=== PATIENT | female | born 1955 | race Caucasian/White ===

== ENCOUNTER → 2016-10-17 | Outpatient (CLI) | payer OTHER ==
[~2016-10-17] MED LIST: ASPEC325 PO; CINN1CAP2 PO; COEN1CAP17 PO; HYDR25TA5 PO; MULT-506 PO; OMEG10007 PO; OXYSR10 PO
--- NOTE | 2016-10-18 16:00 | MAMMOGRAPHY REPORT ---
BILATERAL DIGITAL SCREENING MAMMOGRAM TOMOSYNTHESIS WITH CAD: 10/17/2016 CLINICAL HISTORY: Routine screening. Patient has no complaints. TECHNIQUE: Breast tomosynthesis in addition to standard 2D mammography was performed. Additional 2- D left XCCL and right cleavage views were obtained. Current study was also evaluated with a Computer Aided Detection (CAD) system. COMPARISON: Comparison is made to exams dated: 09/28/2015 mammogram, 09/11/2014 mammogram, 10/15/2012 ma mmogram, 10/12/2011 mammogram, 10/10/2010 mammogram, and 10/01/2009 mammogram - [facility] ter. BREAST COMPOSITION: The tissue of both breasts is almost entirely fatty. FINDINGS: No suspicious mass, architectural distortion or cluster of microcalcifications is seen. IMPRESSION: ACR BI-RADS CATEGORY 1: NEGATIVE There is no mammographic evidence of malignancy. A 1 year screening mammogram is recommended. The pa tient will receive written notification of the results. Approximately 10% of breast cancers are not detected with mammography. A negative mammographic report should not delay biopsy if a clinically suggestive mass is present. Linda Solis M.D. ay/:10/17/2016 18:21:47 Stacker Attendant: Dodie TORRES(Roni)(Carlos)(BD), [facility] letter sent: Normal 1/2 BI-RADS Code: ACR BI-RADS Category 1: Negative
== END | disposition home or self-care (01) ==
LOC: C.MAMM 09:59
PROVIDERS: ATTEND Family Medicine
DX: Z12.31 Encounter for screening mammogram for malignant neoplasm of breast (principal)

== ENCOUNTER → 2017-02-23 | Outpatient (CLI) | payer OTHER ==
--- NOTE | 2017-02-23 14:56 | DIAGNOSTIC IMAGING REPORT ---
L TOE(S) MIN 2 VIEWS CLINICAL HISTORY: 61 years-old Female presenting with LEFT 1ST DIGIT TOE PAIN. TECHNIQUE: Frontal, oblique, and lateral views of the left first toe were obtained. COMPARISON: None. FINDINGS: No acute fracture or malalignment. No advanced degenerative change in the left first toe. No radiographic soft tissue abnormality. Accessory navicular noted. Degenerative change in the midfoot. IMPRESSION: No acute osseous injury of the left first toe. Electronically signed by: Roman Givens M.D. 02/23/2017 2:55 PM Dictated Date/Time: 02/23/2017 2:53 PM
== END | disposition home or self-care (01) ==
LOC: C.RAD1850 14:42
PROVIDERS: ATTEND Family Medicine
DX: M19.072 Primary osteoarthritis, left ankle and foot (principal)

== ENCOUNTER → 2017-10-18 | Outpatient (CLI) | payer OTHER ==
--- NOTE | 2017-10-18 15:09 | MAMMOGRAPHY REPORT ---
BILATERAL DIGITAL SCREENING MAMMOGRAM TOMOSYNTHESIS WITH CAD: 10/18/2017 CLINICAL HISTORY: Routine screening. TECHNIQUE: Breast tomosynthesis in addition to standard 2D mammography was performed. Current study w as also evaluated with a Computer Aided Detection (CAD) system. COMPARISON: Comparison is made to exams dated: 09/28/2015 mammogram, 09/11/2014 mammogram, 10/15/2012 ma mmogram, 10/12/2011 mammogram, 10/10/2010 mammogram, and 10/17/2016 [facility]. BREAST COMPOSITION: The tissue of both breasts is almost entirely fatty. FINDINGS: No suspicious masses, calcifications, or areas of architectural distortion are noted in either breast . There has been no significant interval change compared to prior exams. IMPRESSION: ACR BI-RADS CATEGORY 1: NEGATIVE There is no mammographic evidence of malignancy. A 1 year screening mammogram is recommended.( 019) The patient will receive written notification of the results. Some breast cancers are not detected with mammography. A negative mammographic report should not zoey y biopsy if a clinically suggestive mass is present. Nayeli Mina M.D. ah/:10/18/2017 12:42:10 Receiving Clerk: RT Melinda(Roni)(M), [facility] letter sent: Normal 1/2 BI-RADS Code: ACR BI-RADS Category 1: Negative
== END | disposition home or self-care (01) ==
LOC: C.MAMM 09:36
PROVIDERS: ATTEND Family Medicine
DX: Z12.31 Encounter for screening mammogram for malignant neoplasm of breast (principal)

== ENCOUNTER 2020-02-02 05:09 | Inpatient (IN) ==
--- NOTE | 2020-01-13 12:16 | PAT Medication Instructions ---
Medication Instructions Date of Service January 13, 2020 Home Medications allopurinol 150 mg PO Q OTHER DAY cinnamon bark [Cinnamon] 1,000 mg PO QAM coenzyme Q10 [CoQ-10] 100 mg PO QAM losartan 1 tab PO QAM omega 2-xsk-rgi-fish oil [Fish Oil] 1 cap PO PM pyridoxine (vitamin B6) [Vitamin B-6] 100 mg PO QAM aspirin 81 mg PO QPM Continue as directed allopurinol 150 mg PO Q OTHER DAY STOP taking 2 weeks before surgery cinnamon bark [Cinnamon] 1,000 mg PO QAM coenzyme Q10 [CoQ-10] 100 mg PO QAM omega 4-vwa-hik-fish oil [Fish Oil] 1 cap PO PM DO NOT take the morning of surgery losartan 1 tab PO QAM pyridoxine (vitamin B6) [Vitamin B-6] 100 mg PO QAM Take evening before surgery aspirin 81 mg PO QPM OTHERWISE NOTHING TO EAT OR DRINK AFTER MIDNIGHT Other Notes If you have any questions please call us at [phone] or [phone] or [phone] or [phone]
--- NOTE | 2020-01-15 11:01 | Anesthesiology Consultation ---
Date of Service January 15, 2020 Assessment & Plan (1) Encounter for pre-operative examination: Chart Review Chart Review: Acceptable Risk for Surgery (pending preop Covid testing ) and Patient seen in Pre Admission Testing Per PAT appointment 01/15/2020, pt traveled to the [facility] to visit family 01/08/20. Wears mask in public. No known Covid positive contacts or Covid related symptoms. Scheduled for preop Covid testing 01/27/20= will await results. Educated on importance of self quarantining, social distancing and wearing mask in public both for the patient and household contacts. Right TKA 01/11/18= attempted to do under SAB but had to convert to GA. Grade 1 view with MAC #3. ETT #7.5. Teaching & Discussion Pre-Anesthesia Teaching/Discussion Notes: Instructed NPO after midnight before surgery,except medications with 15 cc of water. Medication instructions provided according to the [facility] guidelines. History Surgery Operation Date: 02/02/20 13:00 Proposed Procedures p Right Reverse Total Shoulder Arthroplasty, - Tunde Guardado DO s Right Carpal Tunnel Release, Right Medial Elbow Injection - Tunde Guardado DO Height/Weight Height: 5 ft 4 in Weight: 118.2 kg Allergies Allergy/AdvReac Type Severity Reaction Status Date / Time erythromycin base AdvReac Intermediate Nausea/VOMITTING Verified 01/12/20 10:49 - SEE NOTES BELOW Medications Home Medications Medication Instructions Recorded Confirmed Last Taken allopurinol 150 mg PO Q OTHER DAY 12/17/17 01/12/20 09/04/18 10:00 cinnamon bark [Cinnamon] 1,000 mg PO QAM 12/17/17 01/12/20 09/01/18 coenzyme Q10 [CoQ-10] 100 mg PO QAM 12/17/17 01/12/20 09/01/18 losartan 1 tab PO QAM 12/17/17 01/12/20 09/03/18 20:00 omega 8-lpj-bds-fish oil [Fish Oil] 1 cap PO PM 12/17/17 01/12/20 09/01/18 pyridoxine (vitamin B6) [Vitamin 100 mg PO QAM 12/17/17 01/12/20 09/01/18 B-6] aspirin 81 mg PO QPM 08/15/18 01/12/20 09/03/18 20:00 Past Medical History Medical History Gout No current issues Hx of blood clots LEFT UPPER THIGH, SPRING 2019> VARICOSE VEIN RELATED/NOT DVT> WAS ON BLOOD THINNER, NOW DONE WITH (WAS ON AC FOR APPROX ONE MONTH) Hyperkalemia HAS HAPPENED POST OP AFTER LAST FEW SURGERIES Hypertension Osteoarthritis Exercise / Class Metabolic Activity III < 4 Walking/Shop/Light housework (ONE FLIGHT OF STAIRS - MILD SOB, NO CHEST PAIN ) Past Family History Family History Mother Family history of diabetes mellitus Father Family hx of colon cancer Past Surgical History Surgical History History of colon resection SECONDARY TO DIVERTICULITIS (RECURRENT) History of tonsillectomy and adenoidectomy History of tooth extraction History of total knee replacement RT/LEFT LEFT KNEE REVISION Hx of colonoscopy Hx of eye surgery "EYES UNCROSSED" CHILD S/P thyroid biopsy BENIGN (THYROID GROWTH) Past Anesthesia History No Hx of Anesthesia Complications (WITH EXCEPTION TO HYPERKALEMIA POST OP ) and No Family Hx of Anesthesia Complications History of PONV No Hx of PONV (WITH EXCEPTION TO ONE EPISODE WITH KNEE SURGERY ) and No Hx of Motion Sickness Social History Smoking Status: Former smoker tobacco type: cigarettes Do You Dip or Chew Tobacco: No Smoking End Date: AGE 29 Hx Alcohol Use: Yes Alcohol type: wine alcohol intake frequency: holidays/special occasions only Hx Substance Use: No substance use type: does not use Review of Systems One episode of palpitations- PCP aware - did not last long - no issues since Occ snoring- no hx of sleep study. No recent issues Patient denies chest pain, shortness of breath, dyspnea on exertion, reflux, cough, wheezing. No hx of seizures, stroke, ID. No hx of blood transfusions Physical Exam Vital Signs VITALS BP 132/89 P 65 TEMP 98.2 SP02 98% RESP 16 Constitutional no acute distress ENMT Mouth: no TMJ clicking Thyromental Distance: > or= 3.5 Finger Breadths (3.5) Mallampati Class: II Missing molars Crowns Neck + short neck (mild ) and + thick neck (mild ); neck extension not limited Respiratory normal respiratory effort; no respiratory distress Auscultation: lungs clear to auscultation bilaterally; no wheezes Cardiovascular Rate/Rhythm: regular rate and regular rhythm Heart Sounds: no murmur Vessels: no carotid bruit Musculoskeletal Spine: no pain with cervical ROM Extremities: extremities normal to inspection Psychiatric Orientation: alert Testing Laboratory Results 01/15/20 11:35 01/15/20 11:35 PT 10.1 Seconds (9.0-12.0) 01/15/20 11:35 INR 1.0 (0.9-1.1) 01/15/20 11:35 APTT 26.4 Seconds (21.0-31.0) 01/15/20 11:35 Blood Type O Positive 01/15/20 11:35 Antibody Screen NEGATIVE 01/15/20 11:35 Electrocardiogram Date: 01/15/20 Findings: + SB @ (56) and + no change from (December 21, 2017 per cardio ) Otherwise normal EKG. Chest X-Ray Date: 01/15/20 Findings: + NAD
--- NOTE | 2020-01-15 12:01 | XRay Report ---
TWO VIEW CHEST CLINICAL HISTORY: Preoperative examination. FINDINGS: PA and lateral chest radiographs are compared to study dated 12/21/2017. The cardiomediasti nal silhouette is unremarkable. The lungs and pleural spaces are clear. There is no pneumothorax. Th e bony thorax appears intact. Degenerative change is noted in the thoracic spine. IMPRESSION: No active disease in the chest. ACT 112: Negative or not required by law. Electronically signed by: Hi Salinas M.D. 01/15/2020 11:59 AM
[2020-01-15 13:20] LABS: Basophils # (auto) 0.01 K/uL (0-0.2); Basophils % (auto) 0.2 %; Eosinophils # (auto) 0.11 K/uL (0-0.5); Eosinophils % (auto) 1.7 %; Hematocrit (blood only) 42.7 % (37-47); Hemoglobin 13.7 g/dL (12.0-16.0); Immature Granulocytes # (auto) 0.01 K/uL (0.00-0.02); Immature Granulocytes % (auto) 0.2 %; Lymphocytes # (auto) 1.52 K/uL (1.2-3.4); Lymphocytes % (auto) 23.3 %; Mean Corpuscular Hemoglobin 28.3 pg (25-34); Mean Corpuscular Hgb Conc 32.1 g/dL (32-36); Mean Corpuscular Volume 88.2 fL (80-100); Mean Platelet Volume 11.7 fL (7.4-10.4); Monocytes # (auto) 0.42 K/uL (0.11-0.59); Monocytes % (auto) 6.5 %; Neutrophils # (auto) 4.44 K/uL (1.4-6.5); Neutrophils % (auto) 68.1 %; Platelet Count 230 K/uL (130-400); RDW Coefficient of Variation 14.6 % (11.5-14.5); RDW Standard Deviation 47.1 fL (36.4-46.3); Red Blood Count 4.84 M/uL (4.2-5.4); White Blood Count 6.51 K/uL (4.8-10.8)
[2020-01-15 13:27] LABS: BUN Creatinine Ratio 19.1 (10-20); Calcium 9.6 mg/dl (8.5-10.1); Creatinine Clr Calc Pharmacy 65.9 ml/min; Est GFR (African American) 62.1; Est GFR (Non-African American) 53.6; Potassium 4.2 mmol/L (3.5-5.1)
[2020-01-15 13:32] LABS: Partial Thromboplastin Ratio 0.9; Partial Thromboplastin Time 26.4 Seconds (21.0-31.0); Prothrombin Time 10.1 Seconds (9.0-12.0)
--- NOTE | 2020-01-16 05:41 | Electrocardiogram Report ---
Test Reason : Blood Pressure : / mmHG Vent. Rate : 056 BPM Atrial Rate : 056 BPM P-R Int : 154 ms QRS Dur : 088 ms QT Int : 442 ms P-R-T Axes : 023 018 013 degrees QTc Int : 426 ms Sinus bradycardia Otherwise normal ECG When compared with ECG of 21-DEC-2017 10:58, No significant change was found Confirmed by Ander Cote ([id number]) on 01/16/2020 5:41:18 AM Referred By: Tunde Guardado Confirmed By:Ander Cote
--- NOTE | 2020-02-01 10:32 | History & Physical Report ---
Date of Service February 01, 2020 Assessment & Plan (1) Rotator cuff arthropathy of right shoulder: We will proceed with a right reverse shoulder arthroplasty, a right open carpal tunnel release, and a medial epicondyle injection. Postoperatively she will be placed in a sling and likely discharged to home on oral pain medications. She plans to use energy physical therapy upon discharge. Present on Admission?: Yes (2) Carpal tunnel syndrome on right: (3) Medial epicondylitis, right elbow: History of Present Illness Chief Complaint: Rotator cuff arthropathy of the right shoulder with carpal tunnel syndrome of the right wrist Primary Care Provider: Everettcuca Teja Pelletier is a pleasant 64-year-old female who is been complaining of chronic increasing right shoulder pain. Is been going on for about a year and a half. She cannot do any activities away from her body or up overhead. X-rays and MRI of her shoulder were diagnostic for a large retracted rotator cuff tear and advanced osteoarthritis of the right shoulder. After failing conservative treatment, she has elected to proceed with a right reverse shoulder arthroplasty. She has also been complaining of numbness in her hand. It is keeping her up at night. She has been diagnosed with carpal tunnel syndrome and has elected to proceed with a right open carpal tunnel release at the time of surgery. She is also been having pain in the medial epicondyle of the right elbow and was hoping to have a medial epicondyle injection at the same time as well. Allergies Allergy/AdvReac Type Severity Reaction Status Date / Time erythromycin base AdvReac Intermediate Nausea/VOMITTING Verified 01/12/20 10:49 - SEE NOTES BELOW Home Medications Medication Instructions Recorded Confirmed Type allopurinol 150 mg PO Q OTHER DAY 12/17/17 01/12/20 History cinnamon bark [Cinnamon] 1,000 mg PO QAM 12/17/17 01/12/20 History coenzyme Q10 [CoQ-10] 100 mg PO QAM 12/17/17 01/12/20 History losartan 1 tab PO QAM 12/17/17 01/12/20 History omega 0-fcb-brm-fish oil [Fish Oil] 1 cap PO PM 12/17/17 01/12/20 History pyridoxine (vitamin B6) [Vitamin 100 mg PO QAM 12/17/17 01/12/20 History B-6] aspirin 81 mg PO QPM 08/15/18 01/12/20 History Past Med/Surg History Medical History Gout No current issues Hx of blood clots LEFT UPPER THIGH, SPRING 2019> VARICOSE VEIN RELATED/NOT DVT> WAS ON BLOOD THINNER, NOW DONE WITH (WAS ON AC FOR APPROX ONE MONTH) Hyperkalemia HAS HAPPENED POST OP AFTER LAST FEW SURGERIES Hypertension Morbid obesity Osteoarthritis Surgical History History of colon resection SECONDARY TO DIVERTICULITIS (RECURRENT) History of tonsillectomy and adenoidectomy History of tooth extraction History of total knee replacement RT/LEFT LEFT KNEE REVISION Hx of colonoscopy Hx of eye surgery "EYES UNCROSSED" CHILD S/P thyroid biopsy BENIGN (THYROID GROWTH) Family History Mother Family history of diabetes mellitus Father Family hx of colon cancer Social History Smoking Status: Former smoker Second Hand Exposure: Yes ( KID); Hx Alcohol Use: Yes Alcohol type: wine Hx Substance Use: No Preferred Language: Icelandic Communication Ability: Effective [employer] Required: No Beliefs That Will Affect Care: None Current Living Situation: Spouse Feels Safe at Home: Yes Assistive Devices: Contacts and Glasses Review of Systems Review of Systems: All systems reviewed & are unremarkable except as noted in HPI & below Physical Exam Constitutional: WD/WN, vitals as above Eyes: PERRL, conjunctivae normal, anicteric sclerae ENMT: external ear and nose normal, oropharynx normal Neck: trachea midline, no thyromegaly Respiratory: normal respiratory effort Cardiovascular: RRR, no murmur, no edema Gastrointestinal (Abdomen): normal bowel sounds, soft, nontender, no hepatosplenomegaly Musculoskeletal: Physical examination of the right shoulder reveals decreased range of motion and significant weakness. There is tenderness palpation along the anterior glenohumeral joint line. The right upper extremity is neurovascularly intact. On examination of the right hand she has a positive Tinel's sign and positive Phalen's test. She has numbness in the median nerve distribution of her right hand. She also has a lot of pain over the medial epicondyle of the right elbow. Psychiatric: A+Ox3, euthymic affect Results & Data Results & Data ([facility]) Diagnostic Findings Radiographs of the right shoulder show some signs of osteoarthritis with blunting of the greater tuberosity and some superior migration of the humeral head on the glenoid. MRI of the right shoulder shows a large retracted rotator cuff tear and advanced osteoarthritis. PG Care Time/CCT Total # of Minutes Spent Total Time Spent with Patient: Total time spent is greater than 50% in coordination of care (as documented) at patient's floor/unit and/or counseling patient: Coding Level of Care Code None Diagnoses Rotator cuff arthropathy of right shoulder M12.811 Carpal tunnel syndrome on right G56.01 Medial epicondylitis, right elbow M77.01
[2020-02-02] MEDS ORDERED: FAMOTIDINE 20 MG TAB PO SCH (06:00)
[2020-02-02] MEDS ORDERED: ROPIVACAINE 0.5% HCL/PF 150 MG, BUPIVACAINE 0.5% MPF 30 ML, EPINEPHrine 30MG/30ML (OR U... INSTIL SCH (06:00)
[2020-02-02] MEDS ORDERED: TRANEXAMIC ACID 1,000 MG **IV Intra-op IV SCH (06:00)
[2020-02-02] MEDS ORDERED: LR 15ML/HR IV SCH (06:00)
[2020-02-02] MEDS ORDERED: ROPIVACAINE 0.5% HCL/PF 150 MG, BUPIVACAINE 0.75% MPF 20 ML, EPINEPHrine 30MG/30ML (OR ... INFIL SCH (06:00)
[2020-02-02] MEDS ORDERED: LR 60ML/HR IV SCH (06:00)
[2020-02-02] MEDS ORDERED: dexAMETHasone 4 MG TAB PO SCH (06:00)
[2020-02-02] MEDS ORDERED: GABAPENTIN 600 MG DOSE PO SCH (06:00)
[2020-02-02] MEDS ORDERED: TRANEXAMIC ACID 1,000 MG **IV Pre-op IV SCH (06:00)
[2020-02-02] MEDS ORDERED: ceFAZolin 2000MG 2,000 MG/15 ML SYR IV SCH (06:00)
[2020-02-02] MEDS ORDERED: ACETAMINOPHEN 500 MG TAB PO SCH (06:00)
[2020-02-02] MEDS ORDERED: BUPIVACAINE 0.5 % 5 MG/1 ML PF 10ML VIAL ONE (06:29)
[2020-02-02] MEDS ORDERED: MIDAZOLAM HCL 1 MG/ML 2ML VIAL ONE (06:42)
[2020-02-02] MEDS ORDERED: PROPOFOL IV EMULSION 10 MG/ML 20 ML VIAL IV ONE (06:42)
[2020-02-02] MEDS ORDERED: fentaNYL citrate 100 MCG/2 ML VIAL ONE (06:42)
[2020-02-02] MEDS ORDERED: LIDOCAINE HCL 2% 2 ML VIAL/AMP(20MG/ML) INFIL ONE (06:42)
[2020-02-02] MEDS ORDERED: ONDANSETRON INJ 2 MG/ML 2 ML VIAL ONE ×2 (06:42→08:53)
[2020-02-02] MEDS ORDERED: ROCURONIUM BROMIDE 10 MG/ML 5 ML VIAL IV ONE (06:42)
--- NOTE | 2020-02-02 06:51 | History & Physical Bridge Note ---
Date of Service February 02, 2020 History & Physical Bridge Note I have examined the patient, reviewed the History & Physical and in the interval since the performance of the History & Physical I have noted the following changes of clinical significance: no changes noted
[2020-02-02] MEDS ORDERED: ORTHO JOINT ANESTHETIC ONE (06:55)
[2020-02-02] MEDS ORDERED: BUPIVACAINE 0.5 % 5 MG/1 ML MPF 30ML VIAL ONE (06:56)
[2020-02-02] MEDS ORDERED: MEPERIDINE HCL 25 MG/ML CARP/VIAL IV PRN (07:33)
[2020-02-02] MEDS ORDERED: fentaNYL citrate 100 MCG/2 ML VIAL IV PRN (07:33)
[2020-02-02] MEDS ORDERED: HYDROmorphone INJ 1 MG/ML SYRINGE IV PRN (07:33)
[2020-02-02] MEDS ORDERED: LABETALOL HCL IV 5 MG/ML 20ML IV PRN (07:33)
[2020-02-02] MEDS ORDERED: ONDANSETRON INJ 2 MG/ML 2 ML VIAL IV PRN ×2 (07:33→10:28)
[2020-02-02] MEDS ORDERED: PHENYLEPHRINE 100MCG/ML 5ML SYR IV PRN (07:33)
[2020-02-02] MEDS ORDERED: ePHEDrine sulfate 50 MG/ML AMP IV PRN (07:33)
[2020-02-02] MEDS ORDERED: ATROPINE SULFATE 0.1 MG/ML 10ML SYR IV PRN (07:33)
[2020-02-02] MEDS ORDERED: TRIAMCINOLONE ACET 40 MG/ML VIAL ONE (07:56)
[2020-02-02] MEDS ORDERED: NEOSTIGMINE METHYLSULFATE 5 MG/5 ML SYR ONE (08:53)
[2020-02-02] MEDS ORDERED: GLYCOPYRROLATE 0.2 MG/ML VIAL ONE (08:53)
[2020-02-02] MEDS ORDERED: DEXAMETHASONE SOD INJ 4 MG/ML VIAL ONE (08:53)
[2020-02-02] MEDS ORDERED: oxyCODONE HCL IR 5 MG TAB (IMMEDIATE RELEASE) PO PRN (09:25)
--- NOTE | 2020-02-02 09:41 | Operative Report ---
PG Post Operative Report Pre & Post Diagnosis Operation Date: 02/02/20 07:15 Pre-Op Diagnosis: Right Carpal Tunnel Syndrome; Medial Epicondylitis Right Elbow; Right Shoulder Rotator Cuff Arthropathy Post-Op Diagnosis: Right Carpal Tunnel Syndrome; Medial Epicondylitis Right Elbow; Right Shoulder Rotator Cuff Arthropathy I identified the patient and participated in the time-out.: Yes Procedure Operation Date: 02/02/20 07:15 Actual Procedures s Right Carpal Tunnel Release(Right) - Tunde Guardado DO s Right Medial Elbow Injection(Right) - Tunde Guardado DO p Right Reverse Total Shoulder Arthroplasty--Uncemented(Right) - Tunde Guardado DO Surgeon Tunde Guardado DO Social Work Specialist Tunde Mendoza PAC Estimated Blood Loss 250 Findings Consistent with Post-Op Diagnosis Specimens Right humeral head Complications none Disposition Disposition: Recovery Room Indications Liyah is a pleasant 64-year-old female who is been dealing with chronic increasing right shoulder pain. MRI and clinical examination were diagnostic for rotator cuff arthropathy of the right shoulder. After failing conservative treatment, she has elected to proceed with a right reverse shoulder arthroplasty. She is also been complaining of chronic medial epicondylitis and wanted to have an injection under anesthesia. She has also been complaining of paresthesias in the median nerve distribution of her right hand. She was hoping to have a carpal tunnel release as well. Description of Procedure Implants used: I used a [employer]omet Comprehensive reverse total shoulder arthroplasty system with a size 13 press fit micro humeral stem, a +6 humeral tray and a standard humeral bearing, a 25 mm small augment baseplate with a 6.5 mm central screw and superior and inferior locking screws, and a size 40 mm eccentric glenosphere. Liyah arrived at [facility] for the above procedure. She was seen in the preoperative holding area and the operative extremity was identified and signed. She was given a preoperative antibiotic, TXA, and an interscalene nerve block. She was taken back to the operating room, laid on table in supine position, and put under general anesthesia. She was then put into the beac hchair position. The shoulder was then prepped and draped in sterile fashion. A timeout was done and the patient and the operative extremity was properly identified. A deltopectoral approach was used. Dissection was taken down through the fascia and the deltoid was retracted laterally and the conjoined tendon was retracted medially. The anterior shoulder was exposed. The biceps tendon was absent from the biceps groove. The subscapularis was mostly torn and the remainder was then directly released off the lesser tuberosity with a peel technique. The inferior capsule was released and the humeral head was dislocated. A canal finding reamer was sent down the center of the humeral canal. Sequential reaming up to a size 13 reamer was done. Off that reamer, a proximal humeral resection guide was placed. The proximal humerus was resected at 135 of inclination and 25 of retroversion. Osteophytes were then removed and the glenoid was exposed. Time was spent doing a complete capsular and labral release. The glenoid guide was then placed in the inferior aspect of the glenoid. A 3.2 mm Steinmann pin was then placed into the glenoid vault at 10 of inclination. The glenoid baseplate was then reamed. The final size 25 mm small augment baseplate was then impacted in the place. A 6.5 mm central screw was then placed followed by superior and inferior locking screws. A 40 mm eccentric glenosphere was then impacted into place. Surrounding soft tissues were then injected with 100 cc an orthopedic pain control cocktail. The proximal humerus was then exposed. Sequential broaching of the humerus up to a size 13 broach was done. Off that broach a +6 humeral tray was trialed. The shoulder was then reduced, brought through a full range of motion, and felt to be stable. The shoulder was then dislocated and the broach was removed. The final size 13 micro press-fit humeral stem was then impacted into place. A standard humeral bearing was then snapped onto a +6 humeral tray. The humeral tray was then impacted onto the humeral stem. The shoulder was once again reduced, brought through a full range of motion, and felt to be stable. The subscapularis was not repairable. A dilute betadyne lavage was then done for 3 minutes. The joint was then irrigated with normal saline solution. Hemostasis was obtained. The interval was closed with 2-0 Vicryl suture. The skin was then closed with 2-0 Vicryl and osmin. A Silverlon dressing was placed. Attention was turned to the carpal tunnel. A longitudinal incision was made directly over the transverse carpal ligament. Dissection was taken down through the palmar fascia with care not to disrupt the palmar cutaneous nerve or the motor branch. This transverse carpal ligament was then exposed. A knife and tenotomy scissors were used to completely release the transverse carpal ligament. Care was taken to ensure complete proximal and distal release. The tourniquet was then deflated and hemostasis was obtained. The incision was then closed with 4-0 nylon suture in a mattress fashion. The wrist was then placed in a soft dressing. The medial epicondyle was then injected with 40 mg of Kenalog and 1 cc of lidocaine. The arm was rested in a regular arm sling. She was then extubated and transferred to a hospital bed. She taken to the postanesthesia care unit in stable condition. She tolerated the procedure well. Tunde Mendoza PA-C, was present for the entire procedure. He was critical for patient positioning, prepping, draping, retraction exposure, wound closure and application of sterile dressing. I attest to the content of the Intraoperative Record and any orders documented therein. Any exceptions are noted below.
[2020-02-02] MEDS ORDERED: PROMETHAZINE HCL 25 MG in SODIUM CHLORIDE 0.9% 50 ML IV ONE (09:50)
--- NOTE | 2020-02-02 10:03 | Anesthesiology Progress Note ---
Date of Service February 02, 2020 Anesthesia Post Procedure Vital Signs Vital Signs: Temp Pulse Pulse Resp BP Pulse Ox 02/02/20 09:55 98 H 16 120/75 94 02/02/20 09:45 92 H 16 134/82 94 02/02/20 09:35 110 H 16 150/82 H 94 02/02/20 09:25 108 H 16 134/77 94 02/02/20 09:15 84 16 122/57 L 94 02/02/20 09:07 36.5 C 110 H 16 131/70 93 02/02/20 05:15 37.1 C 95 H 20 136/94 97 Transfer of Care Handoff Completed per policy Notes Mental Status: alert / awake / arousable Patient Amnestic to Procedure: Yes Nausea / Vomiting: improving with treatment Pain: adequately controlled Airway Patency, RR, SpO2: stable & adequate BP & HR: stable & adequate Hydration State: stable & adequate Anesthetic Complications: no major complications apparent and Pt Satisfied with anesthetic care
[2020-02-02] MEDS ORDERED: METOCLOPRAMIDE HCL INJ 5 MG/ML 2 ML VIAL IV PRN (10:28)
[2020-02-02] MEDS ORDERED: MAGNESIUM HYDROXIDE SUSP 30 ML UDC PO PRN (10:28)
[2020-02-02] MEDS ORDERED: bisacodyL 10 MG SUPP PR PRN (10:28)
[2020-02-02] MEDS ORDERED: NALOXONE HCL 0.4 MG/1 ML VIAL/CARP IV PRN (10:28)
[2020-02-02] MEDS ORDERED: HYDROmorphone INJ 0.5 MG/0.5 ML SYR IV PRN (10:28)
[2020-02-02] MEDS ORDERED: allopurinoL 300 MG TAB PO SCH (12:00)
--- NOTE | 2020-02-02 12:04 | XRay Report ---
XR shoulder RT min 2V routine CLINICAL HISTORY: Post shoulder surgery COMPARISON: None. DISCUSSION: There are postsurgical changes of a reverse total right shoulder arthroplasty. There is n o dislocation. There is gas present within the soft tissues consistent with recent surgery. There are overlying skin osmin. IMPRESSION: Postsurgical changes of a reverse total right shoulder arthroplasty ACT 112: Negative or not required by law. Electronically signed by: Jett Heard M.D. 02/02/2020 12:03 PM
[2020-02-02] MEDS: KETOROLAC 30 MG/ML VIAL IV SCH ×3 (12:18→23:41)
[2020-02-02] MEDS: SODIUM CHLORIDE 0.9% 1000ML 1,000 ML IV SCH ×3 (12:19→23:45)
[2020-02-02] MEDS: ACETAMINOPHEN 500 MG TAB PO SCH ×2 (13:28→22:26)
[2020-02-02] MEDS: ceFAZolin 2000MG 2,000 MG/15 ML SYR IV SCH ×2 (13:28→22:28)
[2020-02-02] MEDS: DOCUSATE SODIUM 100 MG CAP PO SCH (20:32)
[2020-02-02] MEDS ORDERED: ASPIRIN 81 MG ECTAB PO SCH (21:00)
[2020-02-02] MEDS ORDERED: SENNA 8.6 MG TAB PO SCH (21:00)
[2020-02-03] MEDS: ACETAMINOPHEN 500 MG TAB PO SCH (05:31)
[2020-02-03] MEDS: KETOROLAC 30 MG/ML VIAL IV SCH (05:32)
[2020-02-03 05:57] LABS: Eosinophils # (auto) 0.01 K/uL (0-0.5); Eosinophils % (auto) 0.1 %; Hematocrit (blood only) 35.5 % (37-47); Hemoglobin 11.3 g/dL (12.0-16.0); Immature Granulocytes # (auto) 0.02 K/uL (0.00-0.02); Immature Granulocytes % (auto) 0.2 %; Lymphocytes # (auto) 0.84 K/uL (1.2-3.4); Mean Corpuscular Hemoglobin 28.1 pg (25-34); Mean Corpuscular Hgb Conc 31.8 g/dL (32-36); Mean Corpuscular Volume 88.3 fL (80-100); Mean Platelet Volume 10.9 fL (7.4-10.4); Monocytes # (auto) 0.63 K/uL (0.11-0.59); Neutrophils # (auto) 9.03 K/uL (1.4-6.5); Neutrophils % (auto) 85.7 %; Platelet Count 197 K/uL (130-400); RDW Coefficient of Variation 14.6 % (11.5-14.5); RDW Standard Deviation 47.2 fL (36.4-46.3); Red Blood Count 4.02 M/uL (4.2-5.4); White Blood Count 10.53 K/uL (4.8-10.8)
[2020-02-03 06:19] LABS: BUN Creatinine Ratio 15.4 (10-20); Calcium 8.6 mg/dl (8.5-10.1); Creatinine Clr Calc Pharmacy 55.4 ml/min; Est GFR (African American) 50.2; Est GFR (Non-African American) 43.3; Potassium 4.4 mmol/L (3.5-5.1)
--- NOTE | 2020-02-03 07:23 | Orthopedic Progress Note ---
Date of Service February 03, 2020 Assessment & Plan (1) Status post reverse total replacement of right shoulder: Overall she is doing well. She is having too much pain in the right shoulder. She will be seen by physical therapy today for ambulation and range of motion exercises. She can be discharged home later today. She will follow- up with orthopedics in 2 weeks. Present on Admission?: Yes Admission and Anticipated Discharge Date Admission Date: February 02, 2020 Karina Pelletier was seen and examined at bedside this morning. Overall she is doing fairly well. She denies any pain in the right shoulder. She is happy with her progress and has no complaints. Physical Exam Physical Exam: On physical examination, her right arm is in a sling. The dressing is clean and dry. She can move all of her fingers. She does have some feeling in the median nerve distribution. She still is a little bit of numbness in her right thumb. Results & Data ([facility]) Vital Signs (Past 12 Hours) Vital Signs Temp Pulse Pulse Resp BP Pulse Ox 02/03/20 02:27 36.3 C L 56 L 18 147/85 H 93 02/02/20 23:31 36.4 C L 78 18 132/84 90 02/02/20 19:23 36.3 C L 88 18 128/89 93 Laboratory Results H & H 01/15/20 02/03/20 Range/Units 11:35 05:31 Hgb 13.7 11.3 L (12.0-16.0) g/dL Hct 42.7 35.5 L (37-47) % Coagulation 01/15/20 Range/Units 11:35 INR 1.0 (0.9-1.1) Diagnostic Findings Operative x-rays of the right shoulder show the prosthesis to be in anatomic alignment without any evidence of fracture, dislocation, or loosening. PG Care Time/CCT Total # of Minutes Spent Total Time Spent with Patient: Total time spent is greater than 50% in coordination of care (as documented) at patient's floor/unit and/or counseling patient: Coding Level of Care Code None Diagnoses Status post reverse total replacement of right shoulder Z96.611
--- NOTE | 2020-02-03 07:24 | Discharge Summary ---
Date of Service February 03, 2020 Admission HPI Per Admitting Provider Liyah is a pleasant 64-year-old female who is been complaining of chronic increasing right shoulder pain. Is been going on for about a year and a half. She cannot do any activities away from her body or up overhead. X-rays and MRI of her shoulder were diagnostic for a large retracted rotator cuff tear and advanced osteoarthritis of the right shoulder. After failing conservative treatment, she has elected to proceed with a right reverse shoulder arthroplasty. She has also been complaining of numbness in her hand. It is keeping her up at night. She has been diagnosed with carpal tunnel syndrome and has elected to proceed with a right open carpal tunnel release at the time of surgery. She is also been having pain in the medial epicondyle of the right elbow and was hoping to have a medial epicondyle injection at the same time as well. Principal Diagnosis Right reverse shoulder replacement and carpal tunnel release Discharge Data Allergies Allergy/AdvReac Type Severity Reaction Status Date / Time erythromycin base AdvReac Intermediate Nausea/VOMITTING Verified 02/02/20 05:28 - SEE NOTES BELOW Consultations 02/02/20 10:28 Consult Case Management - Discharge Planning Routine Procedures Performed Operation Date: 02/02/20 07:15 Actual Procedures s Right Carpal Tunnel Release(Right) - Tunde Guardado DO s Right Medial Elbow Injection(Right) - Tunde Guardado DO p Right Reverse Total Shoulder Arthroplasty--Uncemented(Right) - Tunde Guardado DO Ordered Studies 02/02/20 05:00 US - OR guided needle placemen Routine Hospital Course (1) Status post reverse total replacement of right shoulder: On February 02, 2020 Liyah arrived to [facility] and underwent a right reverse shoulder arthroplasty and carpal tunnel release without complication. She had a right interscalene nerve block and a general anesthetic. Postoperatively she was placed in a sling and transferred to the general orthopedic floors. Her hospital course was uneventful. On postop day #1 her H&H was stable and her pain was well controlled. She was able to participate well with physical therapy doing ambulation and range of motion exercises. She was then discharged home. She will follow-up with orthopedics in 2 weeks. Total Time Total Time Spent Total Time Spent (In Minutes): 20 Discharge Plan Discharge Items Patient Disposition: Home - Home Health Services Reason For Visit: Degenerative Joint Disease Right Shoulder Discharge Diagnosis: Right reverse shoulder replacement and carpal tunnel release Activity: As commented below Non-emergency contact: Surgeon Call non-emergency contact if: your wound has increased redness and your wound has increased drainage Follow-up/Referrals: Chino Lezama [Primary Care Provider] - Diet: Regular Addtl Attending Provider Instructions: Activity and Therapy Recommendations: * If you are using [facility] then therapy will be provided at your home until they feel you have accomplished all of your goals. * If you are using [facility] then Physical Therapy will be provided until they feel you are ready to start Outpatient Physical Therapy. * If you are not using home therapy then Outpatient Physical Therapy should start about 3-5 days from your day of surgery. Therapy will last about 8-12 weeks * Wear your sling for 3 weeks, unless otherwise instructed. You may remove your sling to shower and to dress, but otherwise, you should be in your sling at all times, including while sleeping * The shoulder replacement is very stable and you can use your hand while in the sling * You were shown a series of exercises in the hospital. Do these exercises daily including the exercises you were shown in physical therapy. Medications: * Narcotic You will likely be sent home from the hospital with a prescription for the narcotic pain medication that worked best throughout your stay. * Other medications may be prescribed for specific circumstances. If you have any questions, please call the office at . * Resume previous home medications unless otherwise instructed Dressing Care: Leave the Silverlon dressing in place for 7 days. After 7 days you may remove the dressing. If the incision is not draining then you may leave the osmin open to air. If there is a little bit of drainage or if the osmin are getting stuck on your clothing then cover the incision with a dry dressing. The osmin will be removed at your 2 week follow-up appointment. Leave the dressing on the carpal tunnel for 5 days. After 5 days you may remove the dressing and leave the sutures open to air. You may place a Band-Aid over it if you would like. Showering: You may shower with the Silverlon dressing in place. Do not let the shower s pray hit the dressing directly. Pat the Silverlon dressing dry. If the dressing becomes wet underneath, then simply remove the dressing. Keep the incision dry until you are 7 days out from the day of surgery. After 7 days you may remove the Silverlon dressing and shower with the osmin exposed. Let soapy water run over the osmin and pat them dry. Do not scrub or soak the incision. For the carpal tunnel incision, do not get the dressing or the wound wet for 5 days. After 5 days you can shower normally with the sutures exposed. Things To Watch For: * Drainage from the incision site that occurs more than one week after your surgery. * Increased redness at the incision site. * Fever above 102 degrees Fahrenheit. * Unusual chest pain or shortness of breath. * Call [facility] at with any of the above problems Follow-Up Visit: Follow-up with Dr. Guardado's PA (Tunde Mendoza) 2-3 weeks after your day of surgery. He will remove your osmin and answer any questions. If you have any additional questions or concerns, Dr Guardado is usually in the office at the same time and will be available An appointment was probably scheduled when you signed-up for surgery in the office. If you have any questions call More detailed instructions as well as Frequently Asked Questions were provided in a folder by our office when you signed-up for surgery. Please review these instructions when you get home. If you have any further questions or concerns, please feel free to call the office at [phone] Pending Studies at Discharge: No Stand-Alone Forms: [facility], Smoking Cessation Medications and DC Order Prescriptions: New tramadol 50 mg tablet 50 mg PO Q6H PRN (Reason: pain) Qty: 30 RF: 0 Continued losartan 50 mg Tablet 1 tab PO QAM RF: 0 allopurinol 300 mg Tablet 150 mg PO Q OTHER DAY RF: 0 pyridoxine (vitamin B6) [Vitamin B-6] 100 mg Tablet 100 mg PO QAM RF: 0 coenzyme Q10 [CoQ-10] 100 mg Capsule 100 mg PO QAM RF: 0 cinnamon bark [Cinnamon] 500 mg Capsule 1,000 mg PO QAM RF: 0 omega [id number] oil [Fish Oil] 1,000 mg (120 mg-180 mg) Capsule 1 cap PO PM RF: 0 aspirin 81 mg Tablet,Delayed Release (Dr/Ec) 81 mg PO QPM RF: 0 Discharge Orders: Discharge Order (Routine); Ordered 02/03/20 Ordered By: Tunde Guardado Admission Data Admit Date/Time: 02/02/20 09:09 Attending Provider: Tunde Guardado Admit Provider: Tunde Guardado Primary Care Provider: Chino Lezama Coding Level of Care Code D/C Day Management <30 mins Diagnoses Status post reverse total replacement of right shoulder Z96.611
[2020-02-03] MEDS ORDERED: dexAMETHasone 4 MG TAB PO SCH (08:00)
[2020-02-03] MEDS: DOCUSATE SODIUM 100 MG CAP PO SCH (08:59)
[2020-02-03] MEDS ORDERED: MULTIVITAMIN TAB PO SCH (09:00)
[2020-02-03] MEDS ORDERED: LOSARTAN POTASSIUM 50 MG TAB PO SCH (09:00)
== END 2020-02-03 10:44 | disposition home health service (06) | DRG 483 ==
LOC: ASU 05:09 → 3W 09:09

== ENCOUNTER 2021-05-09 11:15 | Inpatient (IN) ==
--- NOTE | 2021-05-09 11:46 | Emergency Department Note ---
Impression & Plan SOB (shortness of breath), Pulmonary emboli ED Provider Note NAME: PANKAJ NEUMANN AGE: 66 SEX: F : 1955 ARRIVES VIA: Ambulance INFORMANT: [Patient] ED PROVIDER(S): [Hi Valencia MD] CHIEF COMPLAINT: Short of breath HISTORY OF PRESENT ILLNESS: The patient is a 66-year-old female presents to the ER with about a week of increasing shortness of breath. She notices the symptoms mostly with exertion. She has a slight cough that is productive of mucus. No fever. No chest pain. She has no diagnosed lung disease. She states she also feels dizzy when she feels short of breath. The patient did have a left leg clot at one point, she was on blood thinners, she is not currently on any blood thinning medication. REVIEW OF SYSTEMS: See HPI for pertinent positives and negatives. A total of ten systems were reviewed and were otherwise negative. PMHx/PSHx: See Below SOCIAL HISTORY: See Below. PHYSICAL EXAM: GENERAL: Patient is in no acute distress. HEENT: No acute trauma, normocephalic atraumatic, mucous membranes moist, no nasal congestion, no scleral icterus. NECK: No stridor, no adenopathy, no meningismus, trachea is midline. LUNGS: Clear to auscultation bilaterally, no wheeze, no rhonchi, breath sounds equal. HEART: Without murmurs gallops or rubs, regular rate and rhythm. ABDOMEN: Soft, nontender, bowel sounds positive, no hernias, no peritonitis. EXTREMITIES: No cyanosis or edema, full range of motion of all the joints without pain or difficulty, no signs for acute trauma. NEUROLOGIC: Oriented x 3, no acute motor or sensory deficits, no focal weakness. SKIN: No rash, no jaundice, no diaphoresis. DIFFERENTIAL DIAGNOSIS: Reactive airway disease, COVID-19, pneumonia, pneumothorax, COPD, CHF, infection , cardiac ischemia, pulmonary embolism, bronchitis, musculoskeletal, gastrointestinal, as well as other pathologies. EMERGENCY DEPARTMENT COURSE/PROCEDURES: ECG: Indication was shortness of breath. The ECG shows a sinus rhythm with a rate of 68. There is a PVC. There is no ST elevation, QTc is 425. Continuous Cardiac Monitoring: An order was placed for continuous cardiac monitoring. The monitor shows a rate of 73 with normal sinus rhythm. Critical Care Note: I have personally spent 44 minutes of critical care time in the direct management of this patient. This includes bedside care, interpretation of diagnostic studies, and testing, discussion with consultants, patient, and family members, and other required patient management activities. This 44 minutes is in excess of all separately billable procedures. MEDICAL DECISION MAKING: There is no leukocytosis or concerning anemia. There is a normal platelet count. No coagulopathy. No renal failure or significant electrolyte abnormality in need of emergent correction. ECG shows a sinus rhythm, no obvious ischemia. Cardiac enzyme testing x1 is not consistent with acute cardiac injury. TSH is not elevated. Covid testing is negative. Chest film does not show pneumonia or CHF. Chest CT does show bilateral pulmonary emboli with some right heart strain. Patient is short of breath. She has bilateral pulmonary emboli on work-up. She is in need of a hospital stay. She is in need of anticoagulation. Patient received a bolus of IV heparin, she was placed on a heparin drip. I spoke with the patient about her findings, I spoke with case management. The on-call hospitalist is being consulted. Past Med/Surg History Medical History History of diverticulitis Hx of blood clots LEFT UPPER THIGH, SPRING 2019> VARICOSE VEIN RELATED/NOT DVT> WAS ON BLOOD THINNER, NOW DONE WITH (WAS ON AC FOR APPROX ONE MONTH) Hx of gout Hyperkalemia HAS HAPPENED POST OP AFTER LAST FEW SURGERIES Hypertension Irregular heart beat NO CARDS Osteoarthritis Surgical History Family history of reaction to anesthesia FATHER.NAUSEA History of carpal tunnel release RT History of colon resection SECONDARY TO DIVERTICULITIS (RECURRENT) History of left cataract extraction History of tonsillectomy and adenoidectomy History of tooth extraction History of total knee replacement RT/LEFT LEFT KNEE REVISION Hx of colonoscopy Hx of eye surgery "EYES UNCROSSED" CHILD Nausea and vomiting after administration of anesthetic agent S/P thyroid biopsy BENIGN (THYROID GROWTH) Status post reverse total replacement of right shoulder (~01/2020) Family History Mother Family history of diabetes mellitus Father Family hx of colon cancer Social History Smoking Status: Former smoker Second Hand Exposure: No; Hx Alcohol Use: No Hx Substance Use: No Preferred Language: Zambian Communication Ability: Effective Claims Vice President Required: No Beliefs That Will Affect Care: None Current Living Situation: Spouse Feels Safe at Home: Yes Assistive Devices: Cane Allergies Allergies Allergy/AdvReac Type Severity Reaction Status Date / Time levothyroxine sodium Allergy Severe chest Verified 05/09/21 11:23 pain, head ache, night sweats , yeast infection erythromycin base AdvReac Intermediate Nausea/VOMITTING Verified 05/09/21 11:23 - SEE NOTES BELOW Home Meds Home Medications Medication Instructions Recorded Confirmed allopurinol 300 mg tablet 300 mg PO Q2D 12/17/17 05/09/21 cinnamon bark 500 mg capsule 1,000 mg PO QAM 12/17/17 05/09/21 (Cinnamon) coenzyme Q10 100 mg capsule 100 mg PO QAM 12/17/17 05/09/21 (CoQ-10) losartan 50 mg tablet 1 tab PO QAM 12/17/17 05/09/21 omega 1-mkd-[id number]-fish oil 1,000 mg 1 cap PO PM 12/17/17 05/09/21 (120 mg-180 mg) capsule (Fish Oil) aspirin 81 mg tablet,delayed 81 mg PO QPM 08/15/18 05/09/21 release cholecalciferol (vitamin D3) 25 25 mcg PO QAM 10/05/20 05/09/21 mcg (1,000 unit) tablet (Vitamin D3) apple cider vinegar 500 mg tablet 1,000 mg PO HS 04/14/21 05/09/21 cyanocobalamin (vitamin B-12) 1,000 mcg PO QAM 04/14/21 05/09/21 1,000 mcg capsule prednisolone acetate 1 % eye 1 drp OPL BID 05/09/21 05/09/21 drops,suspension prednisolone acetate 1 % eye 1 drp OPR TID 05/09/21 05/09/21 drops,suspension Results & Data (ED) Vital Signs Vital Signs - 24 hr 05/09/21 11:26 05/09/21 11:27 05/09/21 11:32 Temperature 36.6 C Temperature Source Oral Pulse Rate - Lying Pulse Rate - Sitting Pulse Rate - Standing Pulse Rate 74 73 73 Pulse Rate from SpO2 Sensor 76 71 Pulse Rhythm Regular Pulse Strength Normal Respiratory Rate 20 18 17 Respiratory Effort / Characteristics Non-Labored Respiratory Depth Normal Respiratory Pattern Blood Pressure - Lying Blood Pressure - Sitting Blood Pressure- Standing Blood Pressure 153/95 H Blood Pressure Mean 114 Pulse Oximetry 93 95 95 Oxygen Delivery Method Room Air Sepsis Recent Fever Within 48 Hours No Sepsis New/Unexplained Change in Mental Status No Sepsis Action Taken by Nursing No Action Required 05/09/21 11:35 05/09/21 11:43 05/09/21 11:44 Temperature Temperature Source Pulse Rate - Lying Pulse Rate - Sitting Pulse Rate - Standing Pulse Rate Pulse Rate from SpO2 Sensor 79 98 H Pulse Rhythm Pulse Strength Respiratory Rate Respiratory Effort / Characteristics Non-Labored Spontaneous Respiratory Depth Normal Respiratory Pattern Regular Blood Pressure - Lying Blood Pressure - Sitting Blood Pressure- Standing Blood Pressure 153/89 H 147/98 H Blood Pressure Mean 110 114 Pulse Oximetry 95 92 85 L Oxygen Delivery Method Room Air Room Air Sepsis Recent Fever Within 48 Hours Sepsis New/Unexplained Change in Mental Status Sepsis Action Taken by Nursing 05/09/21 11:45 05/09/21 12:02 05/09/21 12:03 Temperature Temperature Source Pulse Rate - Lying 70 Pulse Rate - Sitting 78 Pulse Rate - Standing 99 H Pulse Rate 81 Pulse Rate from SpO2 Sensor 80 Pulse Rhythm Pulse Strength Respiratory Rate 15 Respiratory Effort / Characteristics Respiratory Depth Respiratory Pattern Blood Pressure - Lying 153/89 H Blood Pressure - Sitting 147/98 H Blood Pressure- Standing 135/91 Blood Pressure 135/91 Blood Pressure Mean 105 Pulse Oximetry 95 Oxygen Delivery Method Sepsis Recent Fever Within 48 Hours Sepsis New/Unexplained Change in Mental Status Sepsis Action Taken by Nursing 05/09/21 12:31 05/09/21 12:57 05/09/21 13:03 Temperature Temperature Source Pulse Rate - Lying Pulse Rate - Sitting Pulse Rate - Standing Pulse Rate 78 78 Pulse Rate from SpO2 Sensor 81 48 L Pulse Rhythm Pulse Strength Respiratory Rate 20 20 29 H Respiratory Effort / Characteristics Respiratory Depth Respiratory Pattern Blood Pressure - Lying Blood Pressure - Sitting Blood Pressure- Standing Blood Pressure 147/88 H Blood Pressure Mean 107 Pulse Oximetry 94 95 Oxygen Delivery Method Sepsis Recent Fever Within 48 Hours Sepsis New/Unexplained Change in Mental Status Sepsis Action Taken by Nursing 05/09/21 13:31 05/09/21 14:00 05/09/21 14:30 Temperature Temperature Source Pulse Rate - Lying Pulse Rate - Sitting Pulse Rate - Standing Pulse Rate 80 66 70 Pulse Rate from SpO2 Sensor 49 L 61 Pulse Rhythm Pulse Strength Respiratory Rate 28 H 17 15 Respiratory Effort / Characteristics Respiratory Depth Respiratory Pattern Blood Pressure - Lying Blood Pressure - Sitting Blood Pressure- Standing Blood Pressure 124/80 144/81 H Blood Pressure Mean 94 102 Pulse Oximetry 94 97 Oxygen Delivery Method Sepsis Recent Fever Within 48 Hours Sepsis New/Unexplained Change in Mental Status Sepsis Action Taken by Nursing 05/09/21 14:31 Temperature Temperature Source Pulse Rate - Lying Pulse Rate - Sitting Pulse Rate - Standing Pulse Rate 78 Pulse Rate from SpO2 Sensor 80 Pulse Rhythm Pulse Strength Respiratory Rate 19 Respiratory Effort / Characteristics Respiratory Depth Respiratory Pattern Blood Pressure - Lying Blood Pressure - Sitting Blood Pressure- Standing Blood Pressure 141/78 H Blood Pressure Mean 99 Pulse Oximetry 95 Oxygen Delivery Method Sepsis Recent Fever Within 48 Hours Sepsis New/Unexplained Change in Mental Status Sepsis Action Taken by [facility] Medications Current Medication List: was personally reviewed by me Laboratory Data Attestation: I reviewed the patient's lab results. Result diagrams: 05/09/21 11:28 05/09/21 11:28 Lab Results 05/09/21 05/09/21 05/09/21 Range/Units 11:28 11:28 11:28 WBC 7.71 (4.8-10.8) K/uL RBC 4.88 (4.2-5.4) M/uL Hgb 14.2 (12.0-16.0) g/dL Hct 43.3 (37-47) % MCV 88.7 (80-100) fL MCH 29.1 (25-34) pg MCHC 32.8 (32-36) g/dL RDW Std Deviation 47.6 H (36.4-46.3) fL RDW Coeff of Surendra 14.6 H (11.5-14.5) % Plt Count 138 (130-400) K/uL MPV 11.2 H (7.4-10.4) fL Immature Gran % (Auto) 0.3 % Neut % (Auto) 67.5 % Lymph % (Auto) 22.7 % [place] % (Auto) 7.9 % Eos % (Auto) 1.3 % Baso % (Auto) 0.3 % Neut # (Auto) 5.21 (1.4-6.5) K/uL Lymph # (Auto) 1.75 (1.2-3.4) K/uL [place] # (Auto) 0.61 H (0.11-0.59) K/uL Eos # (Auto) 0.10 (0-0.5) K/uL Baso # (Auto) 0.02 (0-0.2) K/uL Immature Gran # (Auto) 0.02 (0.00-0.02) K/uL PT Cancelled INR Cancelled APTT Cancelled PTT Ratio Cancelled Sodium (136-145) mmol/L Potassium (3.5-5.1) mmol/L Chloride (98-107) mmol/L Carbon Dioxide (21-32) mmol/L Anion Gap (3-11) BUN (6-23) mg/dl Creatinine (0.6-1.2) mg/dl Est Cr Clr Drug Dosing ml/min Est GFR ( Amer) ml/min Est GFR (Non-Af Amer) ml/min BUN/Creatinine Ratio (10-20) Glucose (70-99(Fasting)) mg/dl Calcium (8.5-10.1) mg/dl Magnesium (1.7-2.4) mg/dl Total Bilirubin (0.2-1.0) mg/dl AST (13-39) U/L ALT (7-52) U/L Alkaline Phosphatase (34-104) U/L Troponin I (0-0.04) ng/ml Total Protein (6.0-8.3) gm/dl Albumin (3.4-5.0) gm/dl Globulin (2.5-4.0) gm/dl Albumin/Globulin Ratio (0.9-2) TSH 3.047 (0.300-4.500) uIu/ml SARS-CoV-2, RNA, NAAT (NEGATIVE) 05/09/21 05/09/21 05/09/21 Range/Units 11:28 12:13 12:14 WBC (4.8-10.8) K/uL RBC (4.2-5.4) M/uL Hgb (12.0-16.0) g/dL Hct (37-47) % MCV (80-100) fL MCH (25-34) pg MCHC (32-36) g/dL RDW Std Deviation (36.4-46.3) fL RDW Coeff of Surendra (11.5-14.5) % Plt Count (130-400) K/uL MPV (7.4-10.4) fL Immature Gran % (Auto) % Neut % (Auto) % Lymph % (Auto) % [place] % (Auto) % Eos % (Auto) % Baso % (Auto) % Neut # (Auto) (1.4-6.5) K/uL Lymph # (Auto) (1.2-3.4) K/uL [place] # (Auto) (0.11-0.59) K/uL Eos # (Auto) (0-0.5) K/uL Baso # (Auto) (0-0.2) K/uL Immature Gran # (Auto) (0.00-0.02) K/uL PT 10.6 INR 1.0 APTT 25.4 PTT Ratio 0.9 Sodium 140 (136-145) mmol/L Potassium 3.7 (3.5-5.1) mmol/L Chloride 108 H (98-107) mmol/L Carbon Dioxide 26 (21-32) mmol/L Anion Gap 6 (3-11) BUN 23 (6-23) mg/dl Creatinine 1.30 H (0.6-1.2) mg/dl Est Cr Clr Drug Dosing 54.0 ml/min Est GFR ( Amer) 49.5 ml/min Est GFR (Non-Af Amer) 42.7 ml/min BUN/Creatinine Ratio 17.7 (10-20) Glucose 91 (70-99(Fasting)) mg/dl Calcium 9.1 (8.5-10.1) mg/dl Magnesium 2.0 (1.7-2.4) mg/dl Total Bilirubin 0.7 (0.2-1.0) mg/dl AST 17 (13-39) U/L ALT 13 (7-52) U/L Alkaline Phosphatase 81 (34-104) U/L Troponin I < 0.03 (0-0.04) ng/ml Total Protein 6.6 (6.0-8.3) gm/dl Albumin 3.8 (3.4-5.0) gm/dl Globulin 2.8 (2.5-4.0) gm/dl Albumin/Globulin Ratio 1.4 (0.9-2) TSH (0.300-4.500) uIu/ml SARS-CoV-2, RNA, NAAT NEGATIVE (NEGATIVE) Administered Medications Heparin Sodium/Dextrose (Heparin Sodium/Dextrose) 25,000 units in 500 mls @ 29 mls/hr IV .[id number] SOM; Protocol Stop: 06/08/21 14:44 Last Admin: 05/09/21 15:04 Dose: 1,450 units/hr, 29 mls/hr Documented by: [id number] Cosigned by: [id number] Discontinued Medications Heparin Sodium (Porcine) (Heparin Sod (Porcine) 1000 Unit/Ml) 1 units IV NOW ONE Stop: 05/09/21 14:33 Last Admin: 05/09/21 15:02 Dose: 6,000 units Documented by: [id number] Cosigned by: [id number] Heparin Sodium (Porcine) (Heparin Sod (Porcine) 1000 Unit/Ml) 6,000 units IV NOW ONE Stop: 05/09/21 15:16 Last Admin: 05/09/21 15:06 Dose: Not Given Documented by: [id number] Heparin Sodium/Dextrose (Heparin Iv Adult Wt-Based Standard With Bolus Protocol) 1 ea IV NOW STA; Protocol Stop: 05/09/21 14:18 Last Admin: 05/09/21 15:05 Dose: Not Given Documented by: [id number] Ioversol (Optiray 320 125ml) 120 ml IV ONCE ONE Stop: 05/09/21 12:57 Last Admin: 05/09/21 12:50 Dose: 120 ml Documented by: [id number] Imaging Data Radiologist's Impression: Chest CTA 05/09/21 11:43 CHEST CTA for PULMONARY ARTERIES CT DOSE: 861.65 mGy.cm HISTORY: Shortness of breath. Atypical chest pain. TECHNIQUE: Multiaxial CT images of the chest were performed following the intravenous administration of contrast to evaluate the pulmonary arteries. Maximal intensity projection images were also obtained. A dose lowering technique was utilized adhering to the principles of ALARA. COMPARISON STUDY: Chest CTA 06/06/2012. FINDINGS: Limited views of the upper abdomen demonstrate a normal liver, spleen, and adrenal glands. Normal esophagus. There is a 2.7 cm right thyroid nodule which is suboptimally assessed due to the metallic artifact from the right shoulder prosthesis. No mediastinal or hilar lymphadenopathy. No pleural or pericardial effusions. Mild flattening of the interventricular septum suggestive of mild right-sided heart strain. Extensive bilateral pulmonary emboli involving the distal bilateral main pulmonary arteries and majority of the bilateral lobar/segmental pulmonary arteries. The main pulmonary artery is dilated up to 3.2 cm. No suspicious lytic or blastic osseous lesions. No pneumothorax. No focal lung consolidations. IMPRESSION: 1. Extensive bilateral pulmonary emboli with associated mild right-sided heart strain. 2. A 2.7 cm right thyroid nodule. Follow-up nonemergent thyroid ultrasound is recommended for further evaluation. ACT 112: Negative or not required by law. Electronically signed by: Sae Rodriguez M.D. 05/09/2021 1:44 PM Chest X-Ray 05/09/21 11:44 XR chest 1V portable CLINICAL HISTORY: Shortness of breath. COMPARISON STUDY: Chest radiograph October 05, 2020. FINDINGS: Lung volumes are normal. Lungs are clear. There is no pneumothorax or pleural effusion. Cardiac size is normal. Mediastinal contours are normal. There is no evidence for pulmonary edema. Right shoulder arthroplasty is incidentally noted. IMPRESSION: No acute cardiopulmonary findings. ACT 112: Negative or not required by law. Electronically signed by: Darius Worthington M.D. 05/09/2021 12:48 PM Discharge Plan Visit Data Chief Complaint: Shortness of Breath/Dyspnea Stated Complaint: SOB ED Provider: Hi Valencia Discharge Problem: SOB (shortness of breath), Pulmonary emboli Patient Disposition: Admitted As Inpatient Condition: Fair Discharge Instructions Interventions: ED Discharge Assessment Last Done: 05/09/21 16:37
[2021-05-09 11:59] LABS: Basophils # (auto) 0.02 K/uL (0-0.2); Basophils % (auto) 0.3 %; Eosinophils % (auto) 1.3 %; Hematocrit (blood only) 43.3 % (37-47); Hemoglobin 14.2 g/dL (12.0-16.0); Immature Granulocytes # (auto) 0.02 K/uL (0.00-0.02); Immature Granulocytes % (auto) 0.3 %; Lymphocytes # (auto) 1.75 K/uL (1.2-3.4); Lymphocytes % (auto) 22.7 %; Mean Corpuscular Hemoglobin 29.1 pg (25-34); Mean Corpuscular Hgb Conc 32.8 g/dL (32-36); Mean Corpuscular Volume 88.7 fL (80-100); Mean Platelet Volume 11.2 fL (7.4-10.4); Monocytes # (auto) 0.61 K/uL (0.11-0.59); Monocytes % (auto) 7.9 %; Neutrophils # (auto) 5.21 K/uL (1.4-6.5); Neutrophils % (auto) 67.5 %; Platelet Count 138 K/uL (130-400); RDW Coefficient of Variation 14.6 % (11.5-14.5); RDW Standard Deviation 47.6 fL (36.4-46.3); Red Blood Count 4.88 M/uL (4.2-5.4); White Blood Count 7.71 K/uL (4.8-10.8)
[2021-05-09 12:13] LABS: Alanine Aminotransferase 13 U/L (7-52); Albumin Globulin Ratio 1.4 (0.9-2); Albumin Level 3.8 gm/dl (3.4-5.0); Alkaline Phosphatase 81 U/L (34-104); Anion Gap 6 (3-11); Aspartate Aminotransferase 17 U/L (13-39); BUN Creatinine Ratio 17.7 (10-20); Bilirubin,Total 0.7 mg/dl (0.2-1.0); Blood Urea Nitrogen 23 mg/dl (6-23); Calcium 9.1 mg/dl (8.5-10.1); Carbon Dioxide 26 mmol/L (21-32); Chloride 108 mmol/L (98-107); Est GFR (African American) 49.5 ml/min; Est GFR (Non-African American) 42.7 ml/min; Globulin 2.8 gm/dl (2.5-4.0); Glucose 91 mg/dl (70-99(Fasting)); Potassium 3.7 mmol/L (3.5-5.1); Sodium 140 mmol/L (136-145); Total Protein 6.6 gm/dl (6.0-8.3); Troponin I < 0.03 ng/ml (0-0.04)
[2021-05-09 12:35] LABS: Partial Thromboplastin Ratio 0.9; Partial Thromboplastin Time 25.4 Seconds (21.0-31.0); Prothrombin Time 10.6 Seconds (9.0-12.0)
[2021-05-09] MEDS ORDERED: OPTIRAY 320 125ml IV ONE (12:56)
--- NOTE | 2021-05-09 13:14 | XRay Report ---
XR chest 1V portable CLINICAL HISTORY: Shortness of breath. COMPARISON STUDY: Chest radiograph October 05, 2020. FINDINGS: Lung volumes are normal. Lungs are clear. There is no pneumothorax or pleural effusion. Car diac size is normal. Mediastinal contours are normal. There is no evidence for pulmonary edema. Right shoulder arthroplasty is incidentally noted. IMPRESSION: No acute cardiopulmonary findings. ACT 112: Negative or not required by law. Electronically signed by: Darius Worthington M.D. 05/09/2021 12:48 PM
--- NOTE | 2021-05-09 13:45 | CT Scan Report ---
CHEST CTA for PULMONARY ARTERIES CT DOSE: 861.65 mGy.cm HISTORY: Shortness of breath. Atypical chest pain. TECHNIQUE: Multiaxial CT images of the chest were performed following the intravenous administration of contrast to evaluate the pulmonary arteries. Maximal intensity projection images were also obtaine d. A dose lowering technique was utilized adhering to the principles of ALARA. COMPARISON STUDY: Chest CTA 06/06/2012. FINDINGS: Limited views of the upper abdomen demonstrate a normal liver, spleen, and adrenal glands. Normal esophagus. There is a 2.7 cm right thyroid nodule which is suboptimally assessed due to the me tallic artifact from the right shoulder prosthesis. No mediastinal or hilar lymphadenopathy. No pleur al or pericardial effusions. Mild flattening of the interventricular septum suggestive of mild right- sided heart strain. Extensive bilateral pulmonary emboli involving the distal bilateral main pulmonar y arteries and majority of the bilateral lobar/segmental pulmonary arteries. The main pulmonary arter y is dilated up to 3.2 cm. No suspicious lytic or blastic osseous lesions. No pneumothorax. No focal lung consolidations. IMPRESSION: 1. Extensive bilateral pulmonary emboli with associated mild right-sided heart strain. 2. A 2.7 cm right thyroid nodule. Follow-up nonemergent thyroid ultrasound is recommended for further evaluation. ACT 112: Negative or not required by law. Electronically signed by: Sae Rodriguez M.D. 05/09/2021 1:44 PM
[2021-05-09] MEDS ORDERED: Heparin IV Adult Wt-Based Standard WITH Bolus Protocol IV STA (14:17)
[2021-05-09] MEDS ORDERED: HEPARIN SOD (PORCINE) 1000 UNIT/ML IV ONE ×2 (14:32→15:15)
[2021-05-09] MEDS: HEPARIN SODIUM/DEXTROSE 25,000 UNITS/500 ML BAG IV SCH (15:04)
--- NOTE | 2021-05-09 15:16 | History & Physical Report ---
Date of Service May 09, 2021 Assessment & Plan (1) Bilateral pulmonary embolism: Plan: Unprovoked Prior superficial thrombus within varicosity 10cm mid to distal left thigh 04/2019 - treated with one month of anticoagulation. US venous doppler to assess for cause. Now with extensive bilateral pulmonary emboli TTE to assess for right heart strain Heparin standard IV drip with bolus Can discontinue aspirin for primary prevention of CV disease (2) History of cataract surgery: Plan: Continue prednisone eye drops per tapering course from her opthamologist (3) Hypertension: Plan: Continue losartan (4) Multiple thyroid nodules: Plan: Followed by endocrinology. Stable. Plan: VTE Prophylaxis - heparin IV Diet - heart healthy Disposition - admit to PCU Admission and Anticipated Discharge Date Admission Date: May 09, 2021 History of Present Illness Chief Complaint: Shortness of breath Primary Care Provider: Chino Lezama Liyah Vieira is a 66 year old female who presents to the ER with 2 weeks of progressively worsening but intermittent shortness of breath. She denies any chest pain. No significant shortness of breath at rest but worse on exertion. This morning is was a lot worse with associated dizziness but no syncope therefore her called for an ambulance to bring her to the emergency room. Associated heart palpitations. No claudication, orthopnea or PND. Never had COVID. Had COVID vaccine [employer] x2 + Booster (Oct/Nov 2020). In the ER, CT for PE confirmed extensive bilateral pulmonary emboli with associated mild right sided heart strain. She denies any leg pain. She reports her mother of a pulmonary emboli in her 60s. She reports history of superficial thrombus in her left thigh within a varicosity in April 2019 treated with one month of anticoagulation. She recently underwent cataract surgery on each eye in March and April. No other surgeries or long haul car/plane journeys. She has a history of bilateral total knee arthroplasty many years ago without DVT at that time. She was referred to medicine for admission and ongoing management of bilateral pulmonary emboli. Allergies Allergy/AdvReac Type Severity Reaction Status Date / Time levothyroxine sodium Allergy Severe chest Verified 05/09/21 11:23 pain, head ache, night sweats , yeast infection erythromycin base AdvReac Intermediate Nausea/VOMITTING Verified 05/09/21 11:23 - SEE NOTES BELOW Home Medications Medication Instructions Recorded Confirmed Type allopurinol 300 mg tablet 300 mg PO Q2D 12/17/17 05/09/21 History cinnamon bark 500 mg capsule 1,000 mg PO QAM 12/17/17 05/09/21 History (Cinnamon) coenzyme Q10 100 mg capsule 100 mg PO QAM 12/17/17 05/09/21 History (CoQ-10) losartan 50 mg tablet 1 tab PO QAM 12/17/17 05/09/21 History omega 9-mjv-hgz-fish oil 1,000 mg 1 cap PO PM 12/17/17 05/09/21 History (120 mg-180 mg) capsule (Fish Oil) aspirin 81 mg tablet,delayed 81 mg PO QPM 08/15/18 05/09/21 History release cholecalciferol (vitamin D3) 25 25 mcg PO QAM 10/05/20 05/09/21 History mcg (1,000 unit) tablet (Vitamin D3) apple cider vinegar 500 mg tablet 1,000 mg PO HS 04/14/21 05/09/21 History cyanocobalamin (vitamin B-12) 1,000 mcg PO QAM 04/14/21 05/09/21 History 1,000 mcg capsule prednisolone acetate 1 % eye 1 drp OPL BID 05/09/21 05/09/21 History drops,suspension prednisolone acetate 1 % eye 1 drp OPR TID 05/09/21 05/09/21 History drops,suspension Past Med/Surg History Medical History History of diverticulitis Hx of blood clots LEFT UPPER THIGH, SPRING 2019> VARICOSE VEIN RELATED/NOT DVT> WAS ON BLOOD THINNER, NOW DONE WITH (WAS ON AC FOR APPROX ONE MONTH) Hx of gout Hyperkalemia HAS HAPPENED POST OP AFTER LAST FEW SURGERIES Hypertension Irregular heart beat NO CARDS Osteoarthritis Surgical History Family history of reaction to anesthesia FATHER.NAUSEA History of carpal tunnel release RT History of colon resection SECONDARY TO DIVERTICULITIS (RECURRENT) History of left cataract extraction History of tonsillectomy and adenoidectomy History of tooth extraction History of total knee replacement RT/LEFT LEFT KNEE REVISION Hx of colonoscopy Hx of eye surgery "EYES UNCROSSED" CHILD Nausea and vomiting after administration of anesthetic agent S/P thyroid biopsy BENIGN (THYROID GROWTH) Status post reverse total replacement of right shoulder (~01/2020) Family History Mother Family history of diabetes mellitus Father Family hx of colon cancer Social History Smoking Status: Former smoker Second Hand Exposure: No; Hx Alcohol Use: No Hx Substance Use: No Preferred Language: Wallisian Communication Ability: Effective Manager Research Development Required: No Beliefs That Will Affect Care: None Current Living Situation: Spouse Feels Safe at Home: Yes Assistive Devices: Cane Review of Systems Review of Systems: All systems reviewed & are unremarkable except as noted in HPI & below Physical Exam Constitutional: WD/WN, vitals as above Eyes: + anicteric sclerae; normal pupil size ENMT: external ear and nose normal, oropharynx normal Respiratory: normal respiratory effort, lungs clear to auscultation Cardiovascular: Rate/Rhythm: regular rate and regular rhythm Heart Sounds: no murmur Extremities: normal capillary refill, + calf tenderness (bilateral) and + pedal edema (trace pre-tibial b/l equal) Gastrointestinal (Abdomen): normal bowel sounds, soft, nontender, no hepatosplenomegaly Musculoskeletal: no cyanosis or clubbing, extremities motor strength 5/5 Skin: no rashes, warm and dry Neurologic: moves all extremities and awake; not confused Psychiatric: A+Ox3, euthymic affect Results & Data Results & Data ([facility]) Vital Signs (Past 12 Hours) Vital Signs Temp Pulse Resp BP Pulse Ox 05/09/21 11:44 97 05/09/21 11:35 95 05/09/21 11:27 36.6 C 73 18 153/95 H 95 Diagnostic Findings XR chest 1V portable CLINICAL HISTORY: Shortness of breath. COMPARISON STUDY: Chest radiograph October 05, 2020. FINDINGS: Lung volumes are normal. Lungs are clear. There is no pneumothorax or pleural effusion. Cardiac size is normal. Mediastinal contours are normal. There is no evidence for pulmonary edema. Right shoulder arthroplasty is incidentally noted. IMPRESSION: No acute cardiopulmonary findings. CHEST CTA for PULMONARY ARTERIES CT DOSE: 861.65 mGy.cm HISTORY: Shortness of breath. Atypical chest pain. TECHNIQUE: Multiaxial CT images of the chest were performed following the intravenous administration of contrast to evaluate the pulmonary arteries. Maximal intensity projection images were also obtained. A dose lowering technique was utilized adhering to the principles of ALARA. COMPARISON STUDY: Chest CTA 06/06/2012. FINDINGS: Limited views of the upper abdomen demonstrate a normal liver, spleen, and adrenal glands. Normal esophagus. There is a 2.7 cm right thyroid nodule which is suboptimally assessed due to the metallic artifact from the right shoulder prosthesis. No mediastinal or hilar lymphadenopathy. No pleural or pericardial effusions. Mild flattening of the interventricular septum suggestive of mild right-sided heart strain. Extensive bilateral pulmonary emboli involving the distal bilateral main pulmonary arteries and majority of the bilateral lobar/segmental pulmonary arteries. The main pulmonary artery is dilated up to 3.2 cm. No suspicious lytic or blastic osseous lesions. No pneumothorax. No focal lung consolidations. IMPRESSION: 1. Extensive bilateral pulmonary emboli with associated mild right-sided heart strain. 2. A 2.7 cm right thyroid nodule. Follow-up nonemergent thyroid ultrasound is recommended for further evaluation. Medications Administered ER Medications Given: Heparin standard IV with bolus ECG Indication: SOB/dyspnea Rate (beats per minute): 68 Rhythm: normal sinus Findings: + other (T wave flattening in anterior leads) and + PVC Comparison ECG Date: from (Oct 05, 2020) Change: the following changes noted (T wave flattening is new) Code Status & VTE Plan Code Status Full VTE Prophylaxis Plan VTE Prophylaxis will be ordered: Yes PG Care Time/CCT Total # of Minutes Spent Total Time Spent with Patient: Total time spent is greater than 50% in coordination of care (as documented) at patient's floor/unit and/or counseling patient: Coding Level of Care Code 23849 Initial Inpt Care Lvl 3 Diagnoses Bilateral pulmonary embolism I26.99 History of cataract surgery Z98.49 Hypertension I10 Multiple thyroid nodules E04.2
[2021-05-09] MEDS ORDERED: ACETAMINOPHEN 325 MG TAB PO PRN (17:14)
[2021-05-09] MEDS: prednisoLONE acetate 1% OP SUSP 5 ML BTL OPR SCH (20:08)
[2021-05-09] MEDS: prednisoLONE acetate 1% OP SUSP 5 ML BTL OPL SCH (20:09)
[2021-05-09] MEDS ORDERED: NON-FORMULARY MEDICATION (Apple Cider Vinegar 500 mg Tablet) PO SCH (21:00)
--- NOTE | 2021-05-09 21:24 | Electrocardiogram Report ---
Test Reason : Blood Pressure : / mmHG Vent. Rate : 068 BPM Atrial Rate : 068 BPM P-R Int : 138 ms QRS Dur : 084 ms QT Int : 400 ms P-R-T Axes : 041 -08 011 degrees QTc Int : 425 ms Poor data quality, interpretation may be adversely affected Sinus rhythm with sinus arrhythmia with occasional Premature ventricular complexes Low voltage QRS Nonspecific T wave abnormality Abnormal ECG When compared with ECG of 05-OCT-2020 17:02, Nonspecific T wave abnormality now evident in Anterior leads Confirmed by Ander Cote ([id number]) on 05/09/2021 9:23:40 PM Referred By: REFERRED SELF Confirmed By:Ander Cote
[2021-05-09 21:31] LABS: Partial Thromboplastin Ratio 4.4
[2021-05-10 06:17] LABS: Basophils # (auto) 0.02 K/uL (0-0.2); Basophils % (auto) 0.3 %; Eosinophils # (auto) 0.13 K/uL (0-0.5); Eosinophils % (auto) 1.8 %; Hematocrit (blood only) 39.7 % (37-47); Hemoglobin 13.4 g/dL (12.0-16.0); Immature Granulocytes # (auto) 0.01 K/uL (0.00-0.02); Immature Granulocytes % (auto) 0.1 %; Lymphocytes # (auto) 2.45 K/uL (1.2-3.4); Lymphocytes % (auto) 34.7 %; Mean Corpuscular Hemoglobin 29.3 pg (25-34); Mean Corpuscular Hgb Conc 33.8 g/dL (32-36); Mean Corpuscular Volume 86.9 fL (80-100); Mean Platelet Volume 10.7 fL (7.4-10.4); Monocytes # (auto) 0.49 K/uL (0.11-0.59); Monocytes % (auto) 6.9 %; Neutrophils # (auto) 3.96 K/uL (1.4-6.5); Neutrophils % (auto) 56.2 %; Platelet Count 179 K/uL (130-400); RDW Coefficient of Variation 14.7 % (11.5-14.5); RDW Standard Deviation 46.8 fL (36.4-46.3); Red Blood Count 4.57 M/uL (4.2-5.4); White Blood Count 7.06 K/uL (4.8-10.8)
--- NOTE | 2021-05-10 06:39 | Ultrasound Report ---
BILATERAL LOWER EXTREMITY VENOUS DOPPLER HISTORY: Screening study in a patient with pulmonary emboli pulmonary emboli, bilateral calf pain COMPARISON STUDY: CTA chest of same day. FINDINGS: There is normal compressibility, flow, and augmentation within the bilateral lower extremit y deep venous systems. IMPRESSION: No DVT within the right or left lower extremity. ACT 112: Negative or not required by law. Electronically signed by: Kayden Morin M.D. 05/10/2021 6:36 AM
[2021-05-10 06:40] LABS: Calcium 8.6 mg/dl (8.5-10.1); Creatinine Clr Calc Pharmacy 58.5 ml/min; Est GFR (African American) 54.5 ml/min; Est GFR (Non-African American) 47.1 ml/min; Partial Thromboplastin Ratio 2.1; Potassium 3.9 mmol/L (3.5-5.1)
[2021-05-10 06:41] LABS: Partial Thromboplastin Time 57.8 Seconds (21.0-31.0)
[2021-05-10] MEDS: allopurinoL 300 MG TAB PO SCH ×2 (08:26→08:29)
[2021-05-10] MEDS: prednisoLONE acetate 1% OP SUSP 5 ML BTL OPR SCH ×2 (08:27→14:21)
[2021-05-10] MEDS: prednisoLONE acetate 1% OP SUSP 5 ML BTL OPL SCH (08:27)
[2021-05-10] MEDS ORDERED: CHOLECALCIFEROL 1,000 UNITS 25 MCG TAB PO SCH (09:00)
[2021-05-10] MEDS ORDERED: CYANOCOBALAMIN (B-12) 500 MCG TABLET PO SCH (09:00)
[2021-05-10] MEDS ORDERED: LOSARTAN POTASSIUM 50 MG TAB PO SCH (09:00)
[2021-05-10] MEDS ORDERED: NON-FORMULARY MEDICATION (Coenzyme Q10 [Coq-10] 100 mg Capsule) PO SCH (09:00)
[2021-05-10] MEDS: HEPARIN SODIUM/DEXTROSE 25,000 UNITS/500 ML BAG IV SCH (12:19)
--- NOTE | 2021-05-10 15:44 | Discharge Summary ---
Date of Service May 10, 2021 Admission HPI Per Admitting Provider Liyah Vieira is a 66 year old female who presents to the ER with 2 weeks of progressively worsening but intermittent shortness of breath. She denies any chest pain. No significant shortness of breath at rest but worse on exertion. This morning is was a lot worse with associated dizziness but no syncope therefore her called for an ambulance to bring her to the emergency room. Associated heart palpitations. No claudication, orthopnea or PND. Never had COVID. Had COVID vaccine [employer] x2 + Booster (Oct/Nov 2020). In the ER, CT for PE confirmed extensive bilateral pulmonary emboli with associated mild right sided heart strain. She denies any leg pain. She reports her mother of a pulmonary emboli in her 60s. She reports history of superficial thrombus in her left thigh within a varicosity in April 2019 treated with one month of anticoagulation. She recently underwent cataract surgery on each eye in March and April. No other surgeries or long haul car/plane journeys. She has a history of bilateral total knee arthroplasty many years ago without DVT at that time. She was referred to medicine for admission and ongoing management of bilateral pulmonary emboli. Principal Diagnosis Acute pulmonary embolism Discharge Exam Constitutional WD/WN, vitals as above Eyes EOM intact bilaterally; no conjunctival abnormality ENMT external ear and nose normal, oropharynx normal Neck trachea midline, no thyromegaly normal visual inspection Respiratory normal respiratory effort, lungs clear to auscultation no respiratory distress Cardiovascular RRR, no murmur, no edema Gastrointestinal (Abdomen) Inspection/Auscultation: abdomen normal to inspection; abdomen not distended Musculoskeletal no cyanosis or clubbing, extremities motor strength 5/5 Skin no rashes, warm and dry Neurologic moves all extremities and awake Psychiatric Orientation: alert, oriented to person and cooperative Discharge Data Allergies Allergy/AdvReac Type Severity Reaction Status Date / Time levothyroxine sodium Allergy Severe chest Verified 05/09/21 11:23 pain, head ache, night sweats , yeast infection erythromycin base AdvReac Intermediate Nausea/VOMITTING Verified 05/09/21 11:23 - SEE NOTES BELOW Consultations 05/09/21 14:19 ED Decision to Admit Stat Ordered Studies 05/09/21 11:43 CT angio chest PE protocol Stat 05/09/21 15:27 US venous doppler LE Routine Hospital Course (1) Bilateral pulmonary embolism: Unprovoked. Echo showed EF 50 - 55%, mild RV dilation and mildly reduced RV function. RVSP 50. Consistent with her significant PE burden, but with stable vital signs, no indication for thrombolysis. She was able to walk the halls and had no O2 need prior to discharge. Heparin gtt -> Lovenox 120 mg SQ Q12h. Discussed extensively with pharmacy and [facility] physician. Due to insurance, warfarin is only option. - Discharged on: * Lovenox 120 mg SQ Q12h x 7 days * Warfarin 5 mg PO daily -> INR check on Sunday with results to PCP. F/u with [facility] next week. (2) History of cataract surgery: Continue prednisone eye drops per tapering course from her opthamologist (3) Hypertension: Continue losartan (4) Multiple thyroid nodules: Followed by endocrinology. Stable. Total Time Total Time Spent Total Time Spent (In Minutes): 35 Discharge Plan Discharge Items Patient Disposition: Home - Self-Care Reason For Visit: ACUTE PULMONARY EMBOLISM Discharge Diagnosis: Acute pulmonary embolism Condition on Discharge: Good Activity: As commented below Activity Comment: Gradually increase your activity as tolerated Non-emergency contact: Primary Care Provider Call non-emergency contact if: your symptoms worsen Follow-up/Referrals: Allyson Redman MD, PhD [Pathologist] - 05/17/21 9:00 am ([facility]) Chino Lezama [Primary Care Provider] - 05/17/21 10:30 am (You will see Dr. Lezama's partner, Dr. Sharma.) Diet: Regular Ambulatory Orders: Prothrombin Time INR (Routine) Timeframe: [id number] Location: Determined by Patient Ordered By: Elfego Potter Attending Provider Instructions: Ms. Vieira, Anmol were admitted to the hospital with a large pulmonary embolism. We don't have a great reason for why this occurred. This means it is called an "unprovoked" blood clot. This does not change how we handle the blood clot in this moment, but will affect how long you have to be on a blood thinner. Please take the Lovenox shots every 12 hours apart. Your next one can be tomorrow morning at 6:00am, then the evening one can be at 7:00pm to get on a 7am/7pm schedule. You will need to take these shots for about 1 week as your blood levels of warfarin get higher. Please note, you will take the warfarin *while* you take the Lovenox. They are supposed to overlap to keep you safe. The warfarin does not thin your blood for at least 3-5 days when you first start it. The Lovenox will keep the blood clots dissolving while the warfarin starts to work. Please stop your baby aspirin (81 mg) as it is not needed now that you are on a blood thinner. Please follow up with your PCP later this week for your blood draw of your INR. I have sent the lab in, so you can get it drawn at our lab here at the hospital, or you can go to your usual lab to have it sent to Dr. Lezama. Please return to the hospital with any further shortness of breath, dizziness, chest pain, or other concerning symptoms. Pending Studies at Discharge: No Stand-Alone Forms: My [facility] [place], Smoking Cessation Medications and DC Order Prescriptions: New warfarin 5 mg Tablet 5 mg PO DAILY@1600 Qty: 30 RF: 0 enoxaparin [Lovenox] 120 mg/0.8 mL syringe 120 mg subcut Q12H Qty: 14 RF: 0 Continued losartan 50 mg Tablet 1 tab PO QAM RF: 0 allopurinol 300 mg Tablet 300 mg PO Q2D RF: 0 coenzyme Q10 [CoQ-10] 100 mg Capsule 100 mg PO QAM RF: 0 cinnamon bark [Cinnamon] 500 mg Capsule 1,000 mg PO QAM RF: 0 omega 9-swg-mmr-fish oil [Fish Oil] 1,000 mg (120 mg-180 mg) Capsule 1 cap PO PM RF: 0 cholecalciferol (vitamin D3) [Vitamin D3] 25 mcg (1,000 unit) Tablet 25 mcg PO QAM RF: 0 cyanocobalamin (vitamin B-12) 1,000 mcg Capsule 1,000 mcg PO QAM RF: 0 apple cider vinegar 500 mg Tablet 1,000 mg PO HS RF: 0 prednisolone acetate 1 % drops,suspension 1 drp OPR TID RF: 0 prednisolone acetate 1 % drops,suspension 1 drp OPL BID RF: 0 Discontinued aspirin 81 mg Tablet,Delayed Release (Dr/Ec) 81 mg PO QPM RF: 0 Discharge Orders: Discharge Order (Routine); Ordered 05/10/21 Ordered By: Elfego Hazel Admission Data Admit Date/Time: 05/09/21 14:49 Attending Provider: Elfego Hazel Admit Provider: Darin Pulido Primary Care Provider: Chino Lezama Other Providers: Elfego Hazel Coding Level of Care Code D/C DAY MANAGEMENT >30 MINS Diagnoses Bilateral pulmonary embolism I26.99 History of cataract surgery Z98.49 Hypertension I10 Multiple thyroid nodules E04.2
--- NOTE | 2021-05-10 15:50 | XCELERA ---
[id number]
[2021-05-10] MEDS ORDERED: WARFARIN SOD 5 MG TAB PO SCH (16:00)
[2021-05-10] MEDS ORDERED: WARFARIN SOD 4 MG TAB PO SCH (16:00)
[2021-05-10] MEDS ORDERED: HEPARIN STOP ORDER ONE (16:45)
[2021-05-10] MEDS ORDERED: ENOXAPARIN INJ 120 MG/0.8 ML SYR SQ ONE (17:00)
== END 2021-05-10 17:48 | disposition home or self-care (01) | DRG 176 ==
LOC: ED 11:15 → SUATTDRO 14:49 → 2N 14:49
DX: E07.89 Other specified disorders of thyroid; Z98.49 Cataract extraction status, unspecified eye; I10 Essential (primary) hypertension; I26.99 Other pulmonary embolism without acute cor pulmonale; Z87.891 Personal history of nicotine dependence; Z79.899 Other long term (current) drug therapy; Z96.611 Presence of right artificial shoulder joint; Z88.1 Allergy status to other antibiotic agents; Z96.653 Presence of artificial knee joint, bilateral; Z88.8 Allergy status to other drugs, medicaments and biological substances

== ENCOUNTER 2022-01-27 10:13 | Observation (INO) ==
--- NOTE | 2021-12-30 10:36 | PAT Medication Instructions ---
Medication Instructions Date of Service December 30, 2021 Home Medications Medication Instructions Recorded warfarin 5 mg tablet See Rx Instructions PO UD #85 tabs 10/05/21 allopurinol 300 mg tablet 300 mg PO Q2D coenzyme Q10 100 mg capsule (CoQ-10) 100 mg PO QAM losartan 50 mg tablet 1 tab PO QAM omega 7-ius-bkn-fish oil 1,000 mg (120 mg-180 mg) capsule (Fish Oil) 1 cap PO PM cholecalciferol (vitamin D3) 25 mcg (1,000 unit) tablet (Vitamin D3) 25 mcg PO QAM apple cider vinegar 500 mg tablet 1,000 mg PO HS cyanocobalamin (vitamin B-12) 1,000 mcg capsule 1,000 mcg PO QAM rxuroldalz-SQ-zadlniwpbqwib 6.25 mg-15 mg-325 mg/15 mL oral liquid (Coricidin HBP Cold-Multi Symptom) 1 ml PO UD PRN Cold Sores warfarin 5 mg tablet See Rx Instructions PO UD vitamin B complex 1 tab PO QAM Continue as directed allopurinol 300 mg tablet 300 mg PO Q2D ASK your prescriber and surgeon warfarin 5 mg tablet See Rx Instructions PO UD STOP taking 2 weeks before surgery (or as soon as possible if surgery is within 2 weeks) coenzyme Q10 100 mg capsule (CoQ-10) 100 mg PO QAM omega 7-udh-goo-fish oil 1,000 mg (120 mg-180 mg) capsule (Fish Oil) 1 cap PO PM apple cider vinegar 500 mg tablet 1,000 mg PO HS DO NOT take the morning of surgery losartan 50 mg tablet 1 tab PO QAM cholecalciferol (vitamin D3) 25 mcg (1,000 unit) tablet (Vitamin D3) 25 mcg PO QAM cyanocobalamin (vitamin B-12) 1,000 mcg capsule 1,000 mcg PO QAM taenbosyen-FS-rdozjlkfomyyq 6.25 mg-15 mg-325 mg/15 mL oral liquid (Coricidin HBP Cold-Multi Symptom) 1 ml PO UD PRN Cold Sores vitamin B complex 1 tab PO QAM Take evening before surgery nytdvxszhm-IE-crhgxqmyrgpao 6.25 mg-15 mg-325 mg/15 mL oral liquid (Coricidin HBP Cold-Multi Symptom) 1 ml PO UD PRN Cold Sores (if needed) Other Notes If you have any questions please call us at [phone] or [phone] or [phone] or [phone]
--- NOTE | 2022-01-03 12:41 | Anesthesiology Consultation ---
Date of Service January 03, 2022 Assessment & Plan (1) Encounter for pre-operative examination: - check coags STAT am DOS. - Case discussed with Dr. Segundo who advised pt to have cardiology pre-op evaluation prior to surgery given co-morbidities, especially moderate pulmonary hypertension on 04/2021 echocardiogram. Pt and surgeon's office made aware. - Outpatient joint assessment: Patient is currently scheduled for inpatient pathway. If re-evaluated pending system levels during current pandemic/surgeon requests outpatient pathway, patient is not acceptable candidate for outpatient joint program from anesthesia standpoint. Chart Review Chart Review: Pending: Refer to Additional Notes / Consult section and Patient seen in Pre Admission Testing Teaching & Discussion Pre-Anesthesia Teaching/Discussion Notes: Instructed NPO after midnight before surgery, except medications with 15 cc of water. Medication instructions provided according to the PAT guidelines. History Surgery Operation Date: 01/27/22 10:30 Proposed Procedures p Left Reverse Total Shoulder Arthroplasty - Tunde Guardado DO s Left Carpal Tunnel Release - Tunde Guardado DO Height/Weight Height: 5 ft 5 in Weight: 115.666 kg Allergies Allergy/AdvReac Type Severity Reaction Status Date / Time levothyroxine sodium Allergy Severe chest Verified 12/29/21 16:56 pain, head ache, night sweats , yeast infection erythromycin base AdvReac Intermediate Nausea/VOMITTING Verified 12/29/21 16:56 - SEE NOTES BELOW Medications Home Medications Medication Instructions Recorded Confirmed Last Taken allopurinol 300 mg tablet 300 mg PO Q2D 12/17/17 12/29/21 04/26/21 coenzyme Q10 100 mg capsule 100 mg PO QAM 12/17/17 12/29/21 04/26/21 (CoQ-10) losartan 50 mg tablet 1 tab PO QAM 12/17/17 12/29/21 04/27/21 omega 2-jsh-lea-fish oil 1,000 mg 1 cap PO PM 12/17/17 12/29/21 04/19/21 (120 mg-180 mg) capsule (Fish Oil) cholecalciferol (vitamin D3) 25 25 mcg PO QAM 10/05/20 12/29/21 04/26/21 mcg (1,000 unit) tablet (Vitamin D3) apple cider vinegar 500 mg tablet 1,000 mg PO HS 04/14/21 12/29/21 04/26/21 cyanocobalamin (vitamin B-12) 1,000 mcg PO QAM 04/14/21 12/29/21 04/26/21 1,000 mcg capsule rnlmlemzik-ZD-wnyzdbsgdirlk 6.25 1 ml PO UD PRN Cold Sores 07/12/21 12/29/21 Unknown mg-15 mg-325 mg/15 mL oral liquid (Coricidin HBP Cold-Multi Symptom) warfarin 5 mg tablet See Rx Instructions PO UD #85 tabs 10/05/21 12/29/21 Unknown vitamin B complex 1 tab PO QAM 12/29/21 12/29/21 Unknown Past Medical History Medical History (Updated 01/03/22 @ 12:37 by Sally Melton PA-C) History of diverticulitis pt reports last episode prior to surgery History of pulmonary embolism 04/2021 - unk etiology - on warfarin Hx of blood clots LEFT UPPER THIGH, SPRING 2019> VARICOSE VEIN RELATED/NOT DVT> WAS ON BLOOD THINNER, NOW DONE WITH (WAS ON AC FOR APPROX ONE MONTH) Hx of gout Hyperkalemia HAS HAPPENED POST OP AFTER LAST FEW SURGERIES Hypertension controlled, stable per pt Irregular heart beat pt unsure of any additional details, states that Dr. Quigley's office reported "weakness on right side after PE" last appt approx. -06/2021; reports occasional positional dizziness with rapid positional changes, denies presyncope; denies syncope or palpitations Multiple thyroid nodules Pulmonary hypertension moderate, RVSP 51 mmHg 05/10/21 in setting of bilat pulmonary emboli Patient denies h/o stroke, seizures, heart attack, heart failure, DM, or blood transfusions. Exercise / Class Metabolic Activity II 4-5 Yardwork/Stairs/Walk up hill (denies chest discomfort or SOB with 1 FOS) Past Family History Family History Mother Family history of diabetes mellitus Father Family hx of colon cancer Other Pulmonary embolism Past Surgical History Surgical History (Updated 01/03/22 @ 12:39 by Sally Melton PA-C) Family history of reaction to anesthesia FATHER.NAUSEA History of carpal tunnel release RT History of colon resection SECONDARY TO DIVERTICULITIS History of left cataract extraction History of tonsillectomy and adenoidectomy History of tooth extraction History of total knee replacement RT 01/11/18: Grade 1 view, MAC 3, ETT 7.5 + PNB. LEFT/LEFT KNEE REVISION. Hx of colonoscopy Hx of eye surgery "EYES UNCROSSED" CHILD Nausea and vomiting after administration of anesthetic agent denies needing scop patch S/P thyroid biopsy BENIGN (THYROID GROWTH) Status post reverse total replacement of right shoulder (~01/2020) 02/02/2020 Grade 1 view, MAC 3, ETT 7.5 + PNB. Past Anesthesia History No Hx of Anesthesia Complications and Other (father with nausea) History of PONV No Hx of Motion Sickness and History of PONV (denies needing scop patch) Social History Smoking Status: Former smoker tobacco type: cigarettes Do You Dip or Chew Tobacco: No Smoking End Date: quit at age 29 Hx Alcohol Use: Yes Alcohol type: hard liquor alcohol intake frequency: holidays/special occasions only Hx Substance Use: No substance use type: does not use Review of Systems Infrequent snoring, denies witnessed apneas. Patient denies chest pain, shortness of breath, dyspnea on exertion, fever, chills, cough, or wheezing. Physical Exam Vital Signs Vitals BP 128/83 P 58 TEMP 97.5 SP02 97% on RA RESP 18 Physical Full cervical extension range of motion without pain TMD 3.5 finger breadths Mallampati Score 1 Dentition: intact, several caps/crowns; denies chipped or loose teeth, implants or bridges Lungs: normal respiratory effort. Clear throughout to auscultation, no adventitious breath sounds Cardiac: regular rate and rhythm, no murmurs noted Carotid arteries: negative bruit bilat Lab Results Anesthesia Preop Results Results Anesthesia Widget: WBC 6.64 K/ul (4.8-10.8) 01/03/22 Hgb 13.2 g/dl (12.0-16.0) 01/03/22 Hct 40.9 % (34.1-44.9) 01/03/22 Plt 215 K/uL (130-400) 01/03/22 Na 140 mmol/L (136-145) 01/03/22 K 4.3 mmol/L (3.5-5.1) 01/03/22 Cl 108 mmol/L (98-107) H 01/03/22 CO2 27 mmol/L (21-32) 01/03/22 BUN 21 mg/dl (6-23) 01/03/22 Creat 1.08 mg/dl (0.6-1.2) 01/03/22 Glucose Level 95 mg/dl (70-99(Fasting)) 01/03/22 PT 22.3 Seconds (9.0-12.0) H 01/03/22 PTT 38.3 Seconds (21.0-31.0) H 01/03/22 INR 2.2 (0.9-1.1) H 01/03/22 Blood Type O Positive 01/03/22 Antibody Screen NEGATIVE 01/03/22 Testing Electrocardiogram Date: 01/03/22 Sinus bradycardia, rate 55 bpm Echocardiogram Date: 05/10/21 EF 50-55% No regional wall motion abnormalities Septal flattening during diastole suggests RV volume overload. No LVH Mildly dilated RV with mildly reduced systolic function Mild RA dilation No significant valvular abnormalities Moderate pulmonary hypertension, RVSP 51 mmHg Other Testing Abdomen pelvis CT 05/27/21 1. No acute intra-abdominal or intrapelvic abnormality. 2. No bowel obstruction or bowel wall thickening. Normal appendix. 3. Colonic diverticulosis without acute diverticulitis. 4. Partial sigmoid colon resection with colocolonic anastomosis. 5. Periumbilical and supraumbilical abdominal wall hernias. Chest CTA 05/09/21 1. Extensive bilateral pulmonary emboli with associated mild right-sided heart strain. 2. A 2.7 cm right thyroid nodule. Follow-up nonemergent thyroid ultrasound is recommended for further evaluation. COVID-19 Risk Screen Screening Information COVID-19 Screen Date: 01/03/22 Exposure 21 Days Family/Household +COVID Last 21 Days: No Exposure 10 Days Any COVID Exposure Last 10 Days: No Symptoms Last 10 Days Experienced COVID Sx Last 10 Days: No + COVID 0-90 Days COVID + in Last 0-90 Days: No
[~2022-01-27 10:13] MED LIST changes: +ACETAMINOPHEN 500 MG TAB PO SCH; -ASPEC325 PO; +BUPIVACAINE 0.5 % 5 MG/1 ML PF 10ML VIAL ONE; -CINN1CAP2 PO; -COEN1CAP17 PO; +FAMOTIDINE 20 MG TAB PO SCH; +GABAPENTIN 300 MG CAP PO SCH; -HYDR25TA5 PO; +LR 15ML/HR IV SCH; +LR 60ML/HR IV SCH; -MULT-506 PO; -OMEG10007 PO; +ORTHO JOINT MIX INFIL SCH; -OXYSR10 PO; +TRANEXAMIC ACID 1,000 MG **IV Intra-op IV SCH; +TRANEXAMIC ACID 1,000 MG **IV Pre-op IV SCH; +ceFAZolin 2000MG 2,000 MG/15 ML SYR IV SCH; +dexAMETHasone 4 MG TAB PO SCH
[2022-01-27 11:47] LABS: Partial Thromboplastin Ratio 0.9; Partial Thromboplastin Time 25.6 Seconds (21.0-31.0); Prothrombin Time 10.3 Seconds (9.0-12.0)
[2022-01-27] MEDS ORDERED: ONDANSETRON INJ 2 MG/ML 2 ML VIAL ONE (12:11)
[2022-01-27] MEDS ORDERED: DEXAMETHASONE SOD INJ 4 MG/ML VIAL ONE (12:11)
[2022-01-27] MEDS ORDERED: PROPOFOL IV EMULSION 10 MG/ML 20 ML VIAL IV ONE (12:11)
[2022-01-27] MEDS ORDERED: LIDOCAINE 2% MPF LOCAL 5 ML VIAL INFIL ONE (12:11)
[2022-01-27] MEDS ORDERED: ROCURONIUM BROMIDE 10 MG/ML 5 ML VIAL IV ONE (12:11)
[2022-01-27] MEDS ORDERED: fentaNYL citrate 100 MCG/2 ML VIAL ONE (12:12)
[2022-01-27] MEDS ORDERED: MIDAZOLAM HCL 1 MG/ML 2ML VIAL ONE (12:12)
--- NOTE | 2022-01-27 12:25 | History & Physical Bridge Note ---
Date of Service January 27, 2022 History & Physical Bridge Note I have examined the patient, reviewed the History & Physical and in the interval since the performance of the History & Physical I have noted the following changes of clinical significance: no changes noted
[2022-01-27] MEDS ORDERED: ORTHO JOINT ANESTHETIC ONE (12:47)
[2022-01-27] MEDS ORDERED: ePHEDrine sulfate 50 MG/ML AMP IV PRN (12:54)
[2022-01-27] MEDS ORDERED: ONDANSETRON INJ 2 MG/ML 2 ML VIAL IV PRN ×2 (12:54→16:56)
[2022-01-27] MEDS ORDERED: fentaNYL citrate 100 MCG/2 ML VIAL IV PRN (12:54)
[2022-01-27] MEDS ORDERED: HYDROmorphone INJ 2 MG/ML SYR/VIAL IV PRN (12:54)
[2022-01-27] MEDS ORDERED: ATROPINE SULFATE 0.1 MG/ML 10ML SYR IV PRN (12:54)
[2022-01-27] MEDS ORDERED: PROMETHAZINE HCL 12.5 MG in SODIUM CHLORIDE 0.9% 50 ML IV PRN (12:54)
[2022-01-27] MEDS ORDERED: SUGAMMADEX SODIUM 200 MG/2 ML VIAL IV ONE (14:56)
--- NOTE | 2022-01-27 14:57 | Operative Report ---
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 of the long head of the biceps tendon Carpel Tunnel syndrome Left Wrist I identified the patient and participated in the time-out.: Yes Procedure Operation Date: 01/27/22 12:50 Actual Procedures p Left Reverse Total Shoulder Arthroplasty(Left) with open biceps tenodesis as a distinct and separate procedure (modifier 59)- Tunde Guardado DO s Left Carpal Tunnel Release(Left) - Tunde Guardado DO Surgeon Tunde Guardaod DO Room Service Server Tunde Mendoza PA-C Estimated Blood Loss 150 Findings Consistent with Post-Op Diagnosis Specimens Left humeral head Description of Procedure A CPT code modifier 59: The long head of the biceps tendon was enlarged and inflamed consistent with tendinopathy. A tenodesis was opted. This was a separate and distinct portion of the procedure. For these reasons, a CPT code modifier 59 will be added to this case. Implants used: I used a [employer] Comprehensive reverse total shoulder arthroplasty system with a size 12 press fit micro humeral stem, a +6 offset humeral tray and a standard humeral bearing, a 25 mm small augment baseplate with a 6.5 mm central screw and superior and inferior locking screws, and a size 36 mm eccentric glenosphere. Liyah arrived at [facility] for the above procedure. She was seen in the preoperative holding area and the operative extremity was identified and signed. She was given a preoperative antibiotic, TXA, and an interscalene nerve block. She was taken back to the operating room, laid on table in supine position, and put under general anesthesia. She was then put into the beachchair position. The shoulder and the hand were then prepped and draped in sterile fashion. A timeout was done and the patient and the operative extremity was properly identified. A deltopectoral approach was used. Dissection was taken down through the fascia and the deltoid was retracted laterally and the conjoined tendon was retracted medially. The anterior shoulder was exposed. The biceps groove was opened up and the biceps tendon was examined extensively. The biceps tendon demonstrated enlargement and inflammatory changes consistent with longstanding inflammation in the context of osteoarthritis and cuff arthropathy. The long head of the biceps tendon was then tenodesed to the upper border of the pectoralis major. This was a separate and distinct portion of the procedure. The subscapularis was then directly released off the lesser tuberosity with a peel technique. The inferior capsule was released and the humeral head was dislocated. A canal finding reamer was sent down the center of the humeral canal. Sequential reaming up to a size 12 reamer was done. Off that reamer, a proximal humeral resection guide was placed. The proximal humerus was resected at 135 of inclination and 25 of retroversion. Osteophytes were then removed and the glenoid was exposed. Time was spent doing a complete capsular and labral release. The glenoid guide was then placed in the inferior aspect of the glenoid. A 3.2 mm Steinmann pin was then placed into the glenoid vault at 10 of inclination. The glenoid baseplate was then reamed. The final size 25 mm small augment baseplate was then impacted in the place. A 6.5 mm central screw was then placed followed by superior and inferior locking screws. A 36 mm eccentric glenosphere was then impacted into place. Surrounding soft tissues were then injected with 100 cc an orthopedic pain control cocktail. The proximal humerus was then exposed. Sequential broaching of the humerus up to a size 12 broach was done. Off that broach a +6 offset humeral tray was trialed. The shoulder was then reduced, brought through a full range of motion, and felt to be stable. The shoulder was then dislocated and the broach was removed. The final size 12 micro press-fit humeral stem was then impacted into place. A standard humeral bearing was then snapped onto a +6 offset humeral tray. The humeral tray was then impacted onto the humeral stem. The shoulder was once again reduced, brought through a full range of motion, and felt to be stable. The subscapularis was then tenodesed back to the lesser tuberosity with transosseous FiberWire sutures and side to side sutures with the arm in 45 of external rotation. A dilute betadyne lavage was then done for 3 minutes. The joint was then irrigated with normal saline solution. Hemostasis was obtained. The interval was closed with 2-0 Vicryl suture. The skin was then closed with 2-0 Vicryl and osmin. A Silverlon dressing was placed and the arm was rested in a regular arm sling. Attention was then turned to the carpal tunnel release of the left hand. A longitudinal incision was made directly over the transverse carpal ligament. Dissection was taken down through the palmar fascia with care not to disrupt the palmar cutaneous nerve or the motor branch. This transverse carpal ligament was then exposed. A knife and tenotomy scissors were used to completely release the transverse carpal ligament. Care was taken to ensure complete proximal and distal release. The tourniquet was then deflated and hemostasis was obtained. The incision was then closed with 4-0 nylon suture in a mattress fashion. The wrist was then placed in a soft dressing. She was then taken to the postanesthesia care unit in stable condition. She tolerated the procedure well. Tunde Mendoza PA-C, was present for the entire procedure. He was critical for patient positioning, prepping, draping, retraction exposure, wound closure and application of sterile dressing. I attest to the content of the Intraoperative Record and any orders documented therein. Any exceptions are noted below.
--- NOTE | 2022-01-27 16:06 | XRay Report ---
XR shoulder LT min 2V routine CLINICAL HISTORY: Post shoulder surgery COMPARISON: Left shoulder radiographs January 03, 2022. FINDINGS: Alignment of the left shoulder arthroplasty is anatomic. No periprosthetic fracture is not ed. There are no unexpected radiopaque foreign bodies. Skin osmin are noted. There is possible elev ation of the left hemidiaphragm with left basilar opacity. IMPRESSION: Expected postoperative appearance of the left shoulder arthroplasty. ACT 112: Negative or not required by law. Electronically signed by: Darius Worthington M.D. 01/27/2022 4:04 PM
[2022-01-27] MEDS ORDERED: METOCLOPRAMIDE HCL INJ 5 MG/ML 2 ML VIAL IV PRN (16:56)
[2022-01-27] MEDS ORDERED: allopurinoL 300 MG TAB PO SCH (16:56)
[2022-01-27] MEDS ORDERED: MAGNESIUM HYDROXIDE SUSP 30 ML UDC PO PRN (16:56)
[2022-01-27] MEDS ORDERED: WARFARIN SOD 7.5 MG TAB PO SCH (16:56)
[2022-01-27] MEDS ORDERED: NALOXONE HCL 0.4 MG/1 ML VIAL/CARP IV PRN (16:56)
[2022-01-27] MEDS ORDERED: HYDROmorphone INJ 0.5 MG/0.5 ML SYR IV PRN (16:56)
[2022-01-27] MEDS ORDERED: oxyCODONE HCL IR 5 MG TAB (IMMEDIATE RELEASE) PO PRN (16:56)
[2022-01-27] MEDS ORDERED: bisacodyL 10 MG SUPP PR PRN (16:56)
[2022-01-27] MEDS: SODIUM CHLORIDE 0.9% 1000ML 1,000 ML IV SCH (17:59)
[2022-01-27] MEDS: KETOROLAC TROMETHAMINE 15 MG/ML VIAL IV SCH ×3 (18:11→22:15)
--- NOTE | 2022-01-27 19:46 | Anesthesiology Progress Note ---
Date of Service January 27, 2022 Anesthesia Post Procedure Vital Signs Vital Signs: Temp Pulse Pulse Resp BP Pulse Ox O2 Del Method 01/27/22 19:39 36.4 C L 83 18 100/63 97 Nasal Cannula 01/27/22 18:33 36.4 C L 81 17 110/72 95 Nasal Cannula 01/27/22 18:01 66 16 113/72 95 Nasal Cannula 01/27/22 17:45 36.5 C 72 17 119/78 95 Nasal Cannula 01/27/22 17:00 36.4 C L 71 17 127/78 94 Nasal Cannula 01/27/22 16:45 63 23 137/68 95 Nasal Cannula 01/27/22 16:25 67 20 120/73 94 Nasal Cannula 01/27/22 16:15 36.4 C L 76 20 124/78 93 Nasal Cannula 01/27/22 16:35 71 24 113/74 93 Nasal Cannula 01/27/22 16:05 74 25 H 146/70 H 94 Nasal Cannula 01/27/22 15:55 67 18 129/71 94 Nasal Cannula 01/27/22 15:45 72 22 123/82 95 Oxymask 01/27/22 15:35 81 24 133/80 96 Oxymask 01/27/22 15:25 77 19 133/83 96 Oxymask 01/27/22 15:19 36.1 C L 86 16 130/80 98 Oxymask 01/27/22 11:22 36.8 C 81 22 131/86 97 Room Air O2 Flow Rate 01/27/22 19:39 2 01/27/22 18:33 2 01/27/22 18:01 2 01/27/22 17:45 2 01/27/22 17:00 2 01/27/22 16:45 2 01/27/22 16:25 2 01/27/22 16:15 2 01/27/22 16:35 2 01/27/22 16:05 2 01/27/22 15:55 2 01/27/22 15:45 2 01/27/22 15:35 3 01/27/22 15:25 4 01/27/22 15:19 5 01/27/22 11:22 Pain Intensity Left Shoulder: Pain Intensity: 0 Transfer of Care Handoff Completed per policy Notes Mental Status: alert / awake / arousable and participated in evaluation Patient Amnestic to Procedure: Yes Nausea / Vomiting: adequately controlled Pain: adequately controlled Airway Patency, RR, SpO2: stable & adequate BP & HR: stable & adequate Hydration State: stable & adequate Anesthetic Complications: no major complications apparent and Pt Satisfied with anesthetic care
[2022-01-27] MEDS: DOCUSATE SODIUM 100 MG CAP PO SCH (20:36)
[2022-01-27] MEDS: ceFAZolin 2000MG 2,000 MG/15 ML SYR IV SCH (20:36)
[2022-01-27] MEDS ORDERED: SENNA 8.6 MG TAB PO SCH (21:00)
[2022-01-27] MEDS: ACETAMINOPHEN 500 MG TAB PO SCH (22:15)
[2022-01-28] MEDS: SODIUM CHLORIDE 0.9% 1000ML 1,000 ML IV SCH (04:12)
[2022-01-28] MEDS: KETOROLAC TROMETHAMINE 15 MG/ML VIAL IV SCH ×2 (05:22→10:42)
[2022-01-28] MEDS: ACETAMINOPHEN 500 MG TAB PO SCH (05:22)
[2022-01-28] MEDS: ceFAZolin 2000MG 2,000 MG/15 ML SYR IV SCH (05:22)
[2022-01-28 06:38] LABS: Hematocrit (blood only) 34.6 % (34.1-44.9); Hemoglobin 11.2 g/dl (12.0-16.0); Immature Granulocytes # (auto) 0.03 K/uL (0.00-0.02); Immature Granulocytes % (auto) 0.3 %; Lymphocytes # (auto) 0.74 K/uL (1.2-3.4); Lymphocytes % (auto) 8.2 %; Mean Corpuscular Hemoglobin 28.6 pg (25.0-34.0); Mean Corpuscular Hgb Conc 32.4 g/dL (32.0-36.0); Mean Corpuscular Volume 88.3 fL (80.0-100.0); Mean Platelet Volume 11.1 fL (9.4-12.3); Monocytes # (auto) 0.47 K/uL (0.24-0.82); Monocytes % (auto) 5.2 %; Neutrophils # (auto) 7.83 K/uL (1.4-6.5); Neutrophils % (auto) 86.3 %; Platelet Count 175 K/uL (130-400); RDW Standard Deviation 45.1 fL (36.4-46.3); Red Blood Count 3.92 M/uL (3.93-5.22); White Blood Count 9.07 K/ul (4.8-10.8)
[2022-01-28 07:29] LABS: BUN Creatinine Ratio 20.5 (10-20); Calcium 8.8 mg/dl (8.5-10.1); Creatinine Clr Calc Pharmacy 61.3 ml/min; Est GFR (African American) 59.3 ml/min; Est GFR (Non-African American) 51.1 ml/min; Potassium 4.5 mmol/L (3.5-5.1)
[2022-01-28] MEDS ORDERED: dexAMETHasone 4 MG TAB PO SCH (08:00)
[2022-01-28] MEDS: DOCUSATE SODIUM 100 MG CAP PO SCH (08:20)
--- NOTE | 2022-01-28 08:56 | Orthopedic Progress Note ---
Date of Service January 28, 2022 Assessment & Plan (1) Status post reverse total replacement of left shoulder: Overall she is doing very well. She is not having any pain in the left arm. She will be seen by physical therapy today for ambulation and range of motion exercises. She can be discharged home later today. She will follow-up orthopedics in 2 weeks. Karina Pelletier was seen and examined at bedside this morning. Overall she is doing very well. She is not having much pain in the left shoulder or the left hand. The nerve block is still in effect. She was able to get some sleep last night. She has no complaints.. Review of Systems All systems reviewed & are unremarkable except as noted in HPI & below. Physical Exam On physical examination of the left shoulder, the dressing is clean and dry. She is wearing her sling as instructed. The nerve block is still in effect.. Results & Data Results & Data Laboratory Results . Diagnostic Findings Postoperative x-rays of the left shoulder show the prosthesis to be in anatomic alignment without any evidence of fracture, screws, or loosening. PG Care Time/CCT Total # of Minutes Spent Total Time Spent with Patient: Total time spent is greater than 50% in coordination of care (as documented) at patient's floor/unit and/or counseling patient: Coding Level of Care Code 30897 Post Operative Follow-Up Diagnoses Status post reverse total replacement of left shoulder Z96.612
--- NOTE | 2022-01-28 08:58 | Discharge Summary ---
Date of Service January 28, 2022 Principal Diagnosis Same as "Discharge Diagnosis" noted below under Discharge Instructions. Discharge Exam On physical examination of the left shoulder, the dressing is clean and dry. She is wearing her sling as instructed. The nerve block is still in effect.. Discharge Data Procedures Performed Operation Date: 01/27/22 12:50 Actual Procedures p Left Reverse Total Shoulder Arthroplasty(Left) - Tunde Guardado DO s Left Carpal Tunnel Release(Left) - Tunde Guardado DO Ordered Studies 01/27/22 05:00 US - OR guided needle placemen Routine Hospital Course (1) Status post reverse total replacement of left shoulder: On January 27, 2022 Liyah arrived at [facility] and underwent a left reverse shoulder arthroplasty and carpal tunnel release without complication. She had a general anesthetic and a left interscalene nerve block. Postoperatively she was placed in a sling and transferred to the general orthopedic floors. Her hospital course was uneventful. On postop day #1, her vital signs were stable and her pain was well controlled. She was able to participate well with physical therapy doing ambulation and range of motion exercises. She was then discharged home. She will follow-up with orthopedics in 2 weeks. PG Care Time/CCT Total # of Minutes Spent Total Time Spent with Patient: Total time spent is greater than 50% in coordination of care (as documented) at patient's floor/unit and/or counseling patient: Discharge Plan Discharge Items Patient Disposition: Home - Home Health Services Reason For Visit: Degenerative Joint Disease Left Shoulder Discharge Diagnosis: Left reverse shoulder replacement Activity: Per Instructions section Non-emergency contact: Surgeon Call non-emergency contact if: your wound has increased redness and your wound has increased drainage Follow-up/Referrals: Chino Lezama [Primary Care Provider] - Diet: Regular Addtl Attending Provider Instructions: Activity and Therapy Recommendations: * If you are using [facility] then therapy will be provided at your home until they feel you have accomplished all of your goals. * If you are using [facility] then Physical Therapy will be provided until they feel you are ready to start Outpatient Physical Therapy. * If you are not using home therapy then Outpatient Physical Therapy should start about 3-5 days from your day of surgery. Therapy will last about 8-12 weeks * Wear your sling for 3 weeks, unless otherwise instructed. You may remove your sling to shower and to dress, but otherwise, you should be in your sling at all times, including while sleeping * The shoulder replacement is very stable and you can use your hand while in the sling * You were shown a series of exercises in the hospital. Do these exercises daily including the exercises you were shown in physical therapy. Medications: * Narcotic You will likely be sent home from the hospital with a prescription for the narcotic pain medication that worked best throughout your stay. * Other medications may be prescribed for specific circumstances. If you have any questions, please call the office at . * Resume previous home medications unless otherwise instructed Dressing Care: Leave the Silverlon dressing in place for 7 days. After 7 days you may remove the dressing. If the incision is not draining then you may leave the osmin open to air. If there is a little bit of drainage or if the osmin are getting stuck on your clothing then cover the incision with a dry dressing. The osmin will be removed at your 2 week follow-up appointment. For the carpal tunnel dressing, you may leave the dressing on for 5 days. After 5 days you may remove the dressing and cover the stitches with a Band-Aid. Showering: You may shower with the Silverlon dressing in place. Do not let the shower spray hit the dressing directly. Pat the Silverlon dressing dry. If the dressing becomes wet underneath, then simply remove the dressing. Keep the incision dry until you are 7 days out from the day of surgery. After 7 days you may remove the Silverlon dressing and shower with the osmin exposed. Let soapy water run over the osmin and pat them dry. Do not scrub or soak the incision. Do not get the carpal tunnel incision wet for 5 days. Things To Watch For: * Drainage from the incision site that occurs more than one week after your surgery. * Increased redness at the incision site. * Fever above 102 degrees Fahrenheit. * Unusual chest pain or shortness of breath. * Call [facility] at with any of the above problems Follow-Up Visit: Follow-up with Dr. Guardado's PA (Tunde Mendoza) 2-3 weeks after your day of surgery. He will remove your osmin and answer any questions. If you have any additional questions or concerns, Dr Guardado is usually in the office at the same time and will be available An appointment was probably scheduled when you signed-up for surgery in the office. If you have any questions call More detailed instructions as well as Frequently Asked Questions were provided in a folder by our office when you signed-up for surgery. Please review these instructions when you get home. If you have any further questions or concerns, please feel free to call the office at [phone] Pending Studies at Discharge: No Stand-Alone Forms: My [facility] Medications and DC Order Prescriptions: New oxycodone-acetaminophen 5-325 mg tablet 1 tab PO Q6H PRN (Reason: pain) Qty: 30 0RF Continued Coricidin HBP Cold-Multi Sympt 6.25-15-325 mg/15 mL liquid 1 ml PO UD PRN (Reason: Cold Sores) enoxaparin 40 mg/0.4 mL syringe 40 mg subcut Q24H Qty: 10 0RF Rx Instructions: Take daily on days as directed around surgery per [facility] warfarin 5 mg tablet See Rx Instructions PO DAILY Qty: 90 1RF Rx Instructions: 2.5 mg Sat and 5 mg x 6 days or UD [facility] orally daily; losartan 50 mg Tablet 1 tab PO QAM allopurinol 300 mg Tablet 300 mg PO Q2D coenzyme Q10 [CoQ-10] 100 mg Capsule 100 mg PO QAM omega 8-lxf-dcp-fish oil [Fish Oil] 1,000 mg (120 mg-180 mg) Capsule 1 cap PO PM cholecalciferol (vitamin D3) [Vitamin D3] 25 mcg (1,000 unit) Tablet 25 mcg PO QAM cyanocobalamin (vitamin B-12) 1,000 mcg Capsule 1,000 mcg PO QAM apple cider vinegar 500 mg Tablet 1,000 mg PO HS Label Comments: GUMMIES vitamin B complex Tablet 1 tab PO QAM Discharge Orders: Discharge Order (Routine); Ordered 01/28/22 Ordered By: Tunde Guardado Admission Data Admit Date/Time: 01/27/22 15:17 Attending Provider: Tunde Guardado Admit Provider: Tunde Guardado Primary Care Provider: Chino Lezama
[2022-01-28] MEDS ORDERED: MULTIVITAMIN TAB PO SCH (09:00)
[2022-01-28] MEDS ORDERED: LOSARTAN POTASSIUM 50 MG TAB PO SCH (09:00)
[2022-01-28] MEDS ORDERED: ENOXAPARIN INJ 40 MG/0.4 ML SYR SQ SCH (17:00)
== END 2022-01-28 12:36 | disposition home health service (06) ==
LOC: ASU 10:13 → PACUINP 10:13 → 3E 17:29
DX: Z79.899 Other long term (current) drug therapy; Z88.8 Allergy status to other drugs, medicaments and biological substances; Z88.1 Allergy status to other antibiotic agents; M19.011 Primary osteoarthritis, right shoulder; G56.02 Carpal tunnel syndrome, left upper limb; Z79.01 Long term (current) use of anticoagulants; Z87.891 Personal history of nicotine dependence; M75.102 Unspecified rotator cuff tear or rupture of left shoulder, not specified as traumatic